=== PATIENT | male | born 1975 | race African-American/Black ===

== ENCOUNTER 2016-10-16 20:09 | Inpatient (IN) ==
--- NOTE | 2016-10-16 21:09 | Emergency Department Note ---
Ramandeep Henderson Brittany, am scribing for, and in the presence of, Florentino Dash M.D. 21:05. Hardy Henderson Howard T, M.D., personally performed the services described in this documentation, ascribed by Shannon Sabillon in my presence, and it is both accurate and complete . Arrival - Arrival Chief Complaint: Extremity Problem Stated Complaint: swelling in leg/bleeding under bottom ED Nursing Triage Note: Pt ambulatory to triage with c/o of left leg swelling and 2nd toe started to form a ulcer. Mode of Arrival: Ambulatory Limitations: No Limitations Source: Patient, Family - History of Present Illness HPI Narrative: This is a 41 y/o black male,who presents to the ED for further evaluation of the left lower extremity which started 6 days ago. He states he has noticed his left foot has been swelling more than normal. He also reports he has noticed an ulcer to the left great toe . He has a known Hx of NIDDM. He states he does not know exactly when the ulcer started but noticed the ulcer to be bleeding earlier tonight. He reports he hit his left ankle on a bedrail 2 days ago. His states they thought the swelling to the left leg was due to the bedrail incident. He denies checking his sugar on a daily basis. He states he is taking Pradaxa. His states she cleans his feet everyday for him and today is the first time she has noticed the discoloration to the left great toe. he denies any chest pain, SOB, or vomiting. Pt has no other complaints/pain in the ED at this time. Pt has a PMHx of CHF, NIDDM, dyslipidemia, HTN, A-fib, and Atrial flutter. Pt has had a cardiac cath with no stents. Pt has a family medical Hx of heart disease and HTN. Pt denies a social Hx. Consistency: constant Severity: moderate Allergies/Adverse Reactions: Allergies Allergy/AdvReac Type Severity Reaction Status Date / Time No Known Allergies Allergy Verified 07/13/16 07:48 Home Medications: Home Medications Medication Instructions Recorded Confirmed Type Carvedilol 25 mg PO BID 10/16/15 10/16/16 History Dabigatran [Pradaxa] 150 mg PO BID 10/16/15 10/16/16 History Furosemide 40 mg PO DAILY 10/16/15 10/16/16 History Lisinopril 10 mg PO DAILY 10/16/15 10/16/16 History Omeprazole 20 mg PO DAILY 10/16/15 10/16/16 History Pravastatin [Pravachol] 40 mg PO BEDTIME 10/16/15 10/16/16 History Spironolactone [Aldactone] 25 mg PO DAILY 10/16/15 10/16/16 History glyBURIDE [Glyburide] 5 mg PO DAILY 10/16/15 10/16/16 History metFORMIN [Glucophage] 1,000 mg PO BID W/MEALS 10/16/15 10/16/16 History Aspirin EC Tab 81 mg PO DAILY #30 tablet 07/14/16 10/16/16 Rx Review of System - Review of System 12 point system: reviewed and no additional remarkable complaints except as stated - Review of System Constitutional: Absent: fever Cardiovascular: Absent: chest pain, dyspnea on exertion Gastrointestinal: Absent: vomiting Musculoskeletal: Present: leg pain (Left leg swelling ), other (Ulcer to the left great toe) Medical,Surgical,& Family Hx - Medical History Cardio: History of: Cardiac Dysrhythmia (atrial fib, atrial flutter), CHF ( nonischemic cardiomyopathy with EF of 10-15% on cath in 2013), Hypertension, Cardiovascular Problems Neurology: No history of: Seizures Endocrine: History of: Diabetes Mellitus (NIDDM), Dyslipidemia - Surgical History Cardiac Surgeries: Sugical HX of: Cardiac Catheterization (2 YEARS AGO, NO STENTS PLACED) - Family History Family History: Reports;: Family Heart Disease, Family Hypertension - Social History Smoking Status: Never smoker Frequency of Alcohol Use: None Type of Drug Use: None Exam Vital Signs: Vital Signs Temperature 99.3 F 10/16/16 20:17 Pulse Rate 71 10/16/16 20:17 Respiratory Rate 20 10/16/16 20:17 Blood Pressure 129/80 10/16/16 20:17 O2 Sat by Pulse Oximetry 95 10/16/16 20:17 - General General appearance: alert, in no apparent distress - Head Head exam: Present: atraumatic, normocephalic, normal inspection - Eye Eye exam: Present: normal appearance, PERRL, EOMI. Absent: scleral icterus, nystagmus, miosis, mydriasis - ENT ENT exam: Present: normal exam, normal oropharynx, mucous membranes moist - Neck Neck exam: Present: normal inspection, full ROM, trachea midline. Absent: tenderness, meningismus, lymphadenopathy, thyromegaly - Chest Chest inspection: Present: normal inspection, symmetric chest wall rise. Absent : tenderness, rash, abscess - Respiratory Respiratory exam: Present: normal lung sounds bilaterally. Absent: rales, respiratory distress, rhonchi, stridor, wheezes - Cardiovascular Cardiovascular exam: Present: regular rate, normal rhythm, normal heart sounds. Absent: murmur, rubs, gallop - Abdominal Exam Abdominal exam: Present: soft, normal bowel sounds. Absent: distention, tenderness, guarding, rebound, rigidity, ascites, mass, bruit - Rectal Exam Rectal exam: Present: deferred - Expanded Lower Left Lower Hip/Pelvis exam: Present: normal inspection, full ROM, pelvis stable. Absent: tenderness, swelling, abrasion, ecchymosis, deformity, internal rotation, shortening Upper leg exam: Present: normal inspection, full ROM. Absent: tenderness, swelling, ecchymosis, deformity, crepitus, dislocation, erythema Knee exam: Present: normal inspection, full ROM. Absent: tenderness, deformity , crepitus, dislocation Lower leg exam: Present: normal inspection (+3 pitting edema), swelling Foot/toe exam: Present: swelling, amputation (Amputation to the 2nd left toe), other (Necrosis to the left great toe). Absent: ecchymosis, deformity, crepitus , erythema, puncture wound, foreign body Neurovascular/Tendon exam: Present: normal capillary refill. Absent: pallor Gait: not tested/not observed - Back Exam Back exam: Present: normal inspection, full ROM. Absent: tenderness, muscle spasm, rashes - Neurological Exam Neurological exam: Present: alert, oriented X3, CN II-XII intact. Absent: motor sensory deficit - Psychiatric Psychiatric exam: Present: normal affect, normal mood. Absent: depressed, agitated, anxious, flat affect, manic - Skin Skin exam: Present: warm, dry, intact, normal color. Absent: rash, cyanosis, diaphoresis, erythema, pallor, mottled Course Course Narrative: Medical decision making: Discussed with hospitalist on-call who will admit the patient and consult general surgery. Dr. White general surgeon is also aware of the patient. Results - Labs Lab Results: I have reviewed the patients labs Disposition Clinical Impression: Idiopathic aseptic necrosis of left toe(s), NICM (nonischemic cardiomyopathy), CHF (congestive heart failure), Diabetes mellitus, HTN (hypertension) Case discussed with: patient, patient's family Disposition: Disch/Xfer-Ipshort Term Hos Condition: Stable Time of Disposition: 21:09 Contact your physician if you experience:: fever over 101, Difficulty voiding, Redness or swelling, Nausea/Vomiting, Shortness of breath, Bleeding, pain uncontrolled by pain medications, Other Return to the Emergency Department if:: fever over 101, Difficulty voiding, Redness or swelling, Nausea/Vomiting, Shortness of breath, Bleeding, pain uncontrolled by pain medications, Other
--- NOTE | 2016-10-16 21:26 | EKG Report ---
Stationary ECG Study [facility] Test Date: 10/16/2016 9:24:53 PM Pat Name: PAT RICH Department: Room: Gender: M Urology Teacher: ESPINOZA : 1975 Requested by: Florentino Kurtz Order Number: [id number] Reading MD: AZEB SEWELL Intervals [place] Rate: 84 P: 79 AK: 133 QRS: 82 QRSD: 99 T: 7 QT: 379 QTc: 419 Interpretive Statements SINUS RHYTHM WITH OCCASIONAL VENTRICULAR PREMATURE COMPLEXES Electronically Signed On 10-17-16 08:27:41 CDT by AZEB SEWELL [email or web address]
[2016-10-16 21:30] LABS: INR 1.2; PT Patient Result 12.3 SECS
[2016-10-16 21:45] LABS: Calcium 8.9 MG/DL (8.5-10.1); Magnesium 1.9 MG/DL (1.8-2.4); Osmolality,Calculated 291.3 MOS/KG (273-304); Potassium 4.6 MMOL/L (3.5-5.1)
--- NOTE | 2016-10-16 22:01 | Hospitalist History & Physical ---
Assessment and Plan (1) Osteomyelitis due to type 2 diabetes mellitus Status: Acute Assessment and plan: Previously had amputation of left great toe, now his left second toe appears to be affected with osteomyelitis grossly on exam Patient is not very symptomatic and vital signs are stable, defer antibiotics at this time unless he develops fever Check ESR and CRP Check ABIs although I palpate good pulses in both feet Consult Dr. White surgery, hope that bone biopsy will guide antibiotic therapy Blood cultures pending Current Visit: Yes (2) Atrial flutter Status: Chronic Assessment and plan: Currently in normal sinus rhythm after an ablation Hold Pradaxa for the expectation of surgery Continue carvedilol Current Visit: No (3) CHF (congestive heart failure) Status: Chronic Assessment and plan: Nonischemic cardiomyopathy with "recovered EF " Continue goal directed medical therapy, hold Spironolactone Current Visit: Yes Qualifiers: Congestive heart failure type: systolic Congestive heart failure chronicity : chronic Qualified Code(s): I50.22 - Chronic systolic (congestive) heart failure (4) Diabetes mellitus Status: Acute Assessment and plan: Hold metformin and glyburide while inpatient, serial fingerstick glucose, sliding scale lispro insulin Current Visit: Yes Qualifiers: Diabetes mellitus type: type 2 Diabetes mellitus complication status: with hyperglycemia Diabetes mellitus assisted insulin use: without middle or intermediate school principal use Qualified Code(s): E11.65 - Type 2 diabetes mellitus with hyperglycemia (5) HTN (hypertension) Status: Chronic Assessment and plan: Well-controlled at the present time, continue home medications, hold Lasix and Aldactone Current Visit: Yes (6) Acute kidney injury Status: Acute Assessment and plan: Hold Lasix and Aldactone, gentle IV hydration given history of heart failure Current Visit: Yes History of Present Illness Chief complaint: Toe wound History of present illness: Mr. Lara is a 41 year old male with past medical history of nonischemic cardiomyopathy/CHF (EF "recovered,") A. Flutter status post ablation on Pradaxa , [id number] diabetes, hypertension, GERD that presented with a chief complaint of toe wound. Onset abrupt. Location left second toe. No associated fever or other generalized symptoms. No associated pain. No aggravating or relieving factors. Precipitating event may have been an abrasion to the left ankle several days ago. He does not seem to check his feet very regularly but was surprised today to find that his left second toe was swollen and oozing a bit of blood. He has neuropathy in bilateral feet but is not terribly uncomfortable at the moment. About a year ago he had his left great toe amputated for similar problem. Culture data at that time showed multiple organisms that were generally susceptible to antibiotics. I discussed CODE STATUS with patient and he opted for DNR. I have reviewed the workup performed in the emergency department of [facility] including labs and I have discussed his case with the emergency room providers. Home Medications Medication Instructions Recorded Confirmed Type Carvedilol 25 mg PO BID 10/16/15 10/16/16 History Dabigatran [Pradaxa] 150 mg PO BID 10/16/15 10/16/16 History Furosemide 40 mg PO DAILY 10/16/15 10/16/16 History Lisinopril 10 mg PO DAILY 10/16/15 10/16/16 History Omeprazole 20 mg PO DAILY 10/16/15 10/16/16 History Pravastatin [Pravachol] 40 mg PO BEDTIME 10/16/15 10/16/16 History Spironolactone [Aldactone] 25 mg PO DAILY 10/16/15 10/16/16 History glyBURIDE [Glyburide] 5 mg PO DAILY 10/16/15 10/16/16 History metFORMIN [Glucophage] 1,000 mg PO BID W/MEALS 10/16/15 10/16/16 History Aspirin EC Tab 81 mg PO DAILY #30 tablet 07/14/16 10/16/16 Rx Allergies Allergy/AdvReac Type Severity Reaction Status Date / Time No Known Allergies Allergy Verified 07/13/16 07:48 Medical,Surgical,& Family Hx - Medical History Cardio: History of: Cardiac Dysrhythmia (atrial fib, atrial flutter), CHF ( nonischemic cardiomyopathy with EF of 10-15% on cath in 2013), Hypertension, Cardiovascular Problems Neurology: No history of: Seizures Endocrine: History of: Diabetes Mellitus (NIDDM), Dyslipidemia - Surgical History Cardiac Surgeries: Sugical HX of: Cardiac Catheterization (2 YEARS AGO, NO STENTS PLACED) - Family History Family History: Reports;: Family Heart Disease, Family Hypertension - Social History Smoking Status: Never smoker Frequency of Alcohol Use: None Type of Drug Use: None Marital Status: Lives With:: Spouse Functional capacity: independent ambulation Review of systems: - Constitutional Constitutional: Absent: chills, fatigue, fever(s), night sweats, weight loss - EENT Eyes: Absent: blurry vision Ears: Absent: decreased hearing, ear pain Nose, mouth and throat: Absent: nasal congestion, sore throat - Cardiovascular Cardiovascular: Absent: chest pain at rest, chest pain with activity, dyspnea on exertion, edema, orthopnea, palpitations - Respiratory Respiratory: Absent: cough, dyspnea, hemoptysis - Gastrointestinal Gastrointestinal: Absent: abdominal pain, constipation, diarrhea, dysphagia, hematemesis, hematochezia, melena, nausea, vomiting - Genitourinary Genitourinary: Absent: difficulty urinating, dysuria, hematuria - Musculoskeletal Musculoskeletal: Present: Wound on left foot - Neurological Neurological: Present: Diabetic neuropathy in feet absent: confusion, dizziness , focal weakness, headache(s), syncope - Psychiatric Psychiatric: Absent: anxiety, depression - Endocrine Endocrine: Absent: cold intolerance, heat intolerance, polydipsia, polyuria - Hematologic/Lymphatic Hematologic/Lymphatic: Absent: easy bleeding, easy bruising, lymphadenopathy Exam - Constitutional Vitals: Period Temp Pulse Resp BP Sys/Jin Pulse Ox Last 24 Hr 99.3 F-99.3 F 71-81 18-20 129-150/80-86 95-96 General appearance: over weight, other (-Mauritian male lying on stretcher pleasant cooperative) Exam: - Eye Eye exam: Present: EOMI. Absent: conjunctival injection, scleral icterus Pupils: Present: CASTRO - ENT ENT exam: Present: normal external ear exam, normal oropharynx - Expanded ENT Exam Mouth exam: Present: moist - Neck Neck exam: Present: normal inspection. Absent: lymphadenopathy, thyromegaly - Respiratory Respiratory exam: Present: clear to auscultation bilaterally. Absent: accessory muscle use, rales, rhonchi, wheezes - Cardiovascular Cardiovascular exam: Present: regular rate and rhythm. Absent: diastolic murmur , systolic murmur - Expanded Cardiovascular Exam Peripheral pulses: 2+: posterior tibialis (L), posterior tibialis (R) - GI/Abdominal GI/Abdominal exam: Present: normal bowel sounds, soft. Absent: distended, hyperactive bowel sounds, hypoactive bowel sounds, organomegaly, tenderness, rebound - Extremities Exam Extremities exam: Present: edema, swollen dark and draining left second toe. Abrasion of left ankle with swelling of the lower leg. - Neurological Exam Neurological exam: Present: alert, oriented X3, CN II-XII intact. Absent: motor sensory deficit - Psychiatric Psychiatric exam: Present: normal affect - Skin Skin exam: Present: warm, dry. Absent: diaphoretic, rash Results - Labs CBC & BMP: 10/16/16 20:58 10/16/16 20:58 - Diagnostic Findings Procedure: KUB x-ray: report reviewed by me
[2016-10-16] MEDS ORDERED: GLUCAGON 1 MG VIAL IM PRN (22:22)
[2016-10-16] MEDS ORDERED: DEXTROSE 50% 25 GM/50 ML VIAL IV PRN (22:22)
[2016-10-16 22:39] LABS: Basophils % 0.3 % (0.0-0.8); Eosinophils # 0.2 10*3/uL (0.0-0.87); Eosinophils % 2.2 % (0.00-10.9); Hematocrit 34.5 VOL% (42.0-52.0); Hemoglobin 11.4 GM/DL (14.0-18.0); Immature Granulocytes % 0.4 %; Immature Granulocytes Absolute 0.03 #; Lymphocytes # 1.7 10*3/uL (1.4-4.0); Lymphocytes % 22.1 % (21.2-54.2); Mean Corpuscular Hemoglobin 29 PG (27-34); Mean Corpuscular Volume 86.9 FL (87-102); Monocytes # 0.8 10*3/uL (0.11-0.8); Monocytes % 9.9 % (1.7-12.7); Neutrophils % 65.1 % (38.7-73.9); Platelet Count 149 T/CUMM (130-400); Red Blood Count 3.97 MC/CUMM (3.8-5.5); White Blood Count 7.6 T/CUMM (4-12)
[2016-10-16] MEDS: CARVEDILOL 25 MG TABLET PO SCH (22:55)
[2016-10-16] MEDS: SODIUM CHLORIDE 0.45% 1,000 ML IV SCH (22:55)
[2016-10-17] MEDS: INSULIN LISPRO 100 UNIT/ML SUBCUT SCH ×4 (00:20→18:09)
--- NOTE | 2016-10-17 08:21 | XRay Report ---
Referring Physician: Florentino Dash Exam: XR left toes 3 views Date: October 14, 2016 at 9:02 PM Reason: Infection/necrosis left second toe Comparison: Left foot x-rays January 25, 2016 Findings: There has been amputation of the first digit to the proximal first metatarsal. Soft tissue swelling is seen at the second digit, and there is irregularity and lucency at the distal tuft of the distal second phalanx. This is concerning for osteomyelitis. The remaining osseous structures appear intact, but there may be hammertoe deformities. Mild degenerative change is noted at the tarsal bones. Impression: 1. There is soft tissue swelling at the second digit. There is also lucency and irregularity at the distal tuft of the distal second phalanx. This is concerning for osteomyelitis. 2. There has been interval amputation of the first digit to the proximal first metatarsal. PROCEDURE INTERPRETED AT [facility] DEPARTMENT OF RADIOLOGY Final Report Signed by: Dr. Lucia Agarwal
[2016-10-17] MEDS: PANTOPRAZOLE 40 MG TABLET PO SCH (09:33)
[2016-10-17] MEDS: LISINOPRIL 5 MG TABLET PO SCH (09:33)
[2016-10-17] MEDS: CARVEDILOL 25 MG TABLET PO SCH ×2 (09:33→21:22)
--- NOTE | 2016-10-17 10:02 | General Surgery Consult Note ---
Assessment and Plan - Time spent with patient Time spent with patient: Greater than 30 minutes (1) Osteomyelitis due to type 2 diabetes mellitus Status: Acute Assessment and plan: 10/17/16 Probable osteomyelitis of the distal left 2nd toe with x ray evidence of bony distruction. There is some drainage present and clinical signs of chronic infection present and elevated CRP and ESR. His He has good palpable pulses and evidence of healing in the foot with previously amputated left great toe. We discussed the need for excisional debridement/amputation of at least the distal tuft of the left 2nd toe. He is in agreement with surgery. His Pradaxa & Metformin have been held. Will post for surgery; Anesthesia will likely require a cardiac clearance, so we'll go ahead and request a consult. Current Visit: Yes (2) Atrial flutter Status: Chronic Assessment and plan: 10/17/16 Pt with history of atrial flutter, s/p ablation. His Pradaxa has been held and we will ask Cardiology to clear prior to surgery. We anticipate he will require minimal anesthesia for this procedure. Current Visit: No History of Present Illness Chief complaint: LLE swelling with drainage from left 2nd toe History of present illness: Mr. Lara is a 41 year old male Home Medications Medication Instructions Recorded Confirmed Type Carvedilol 25 mg PO BID 10/16/15 10/16/16 History Dabigatran [Pradaxa] 150 mg PO BID 10/16/15 10/16/16 History Furosemide 40 mg PO DAILY 10/16/15 10/16/16 History Lisinopril 10 mg PO DAILY 10/16/15 10/16/16 History Omeprazole 20 mg PO DAILY 10/16/15 10/16/16 History Pravastatin [Pravachol] 40 mg PO BEDTIME 10/16/15 10/16/16 History Spironolactone [Aldactone] 25 mg PO DAILY 10/16/15 10/16/16 History glyBURIDE [Glyburide] 5 mg PO DAILY 10/16/15 10/16/16 History metFORMIN [Glucophage] 1,000 mg PO BID W/MEALS 10/16/15 10/16/16 History Aspirin EC Tab 81 mg PO DAILY #30 tablet 07/14/16 10/16/16 Rx Allergies Allergy/AdvReac Type Severity Reaction Status Date / Time No Known Allergies Allergy Verified 07/13/16 07:48 Medical,Surgical,& Family Hx - Medical History Cardio: History of: Cardiac Dysrhythmia (atrial fib, atrial flutter), CHF ( nonischemic cardiomyopathy with EF of 10-15% on cath in 2013), Hypertension, Cardiovascular Problems Neurology: No history of: Seizures Endocrine: History of: Diabetes Mellitus (NIDDM), Dyslipidemia Musculoskeletal: History of: Amputation (left great toe) - Surgical History Cardiac Surgeries: Sugical HX of: Cardiac Catheterization (2 YEARS AGO, NO STENTS PLACED) Thoracic Surgeries: Patient denies;: Organ Transplant Neurologic Surgeries: Patient denies: Neurologic Surgery HEENT Surgeries: Patient denies: Thyroid Surgery, Tonsilectomy & Adenoidectomy - Family History Family History: Reports;: Family Heart Disease, Family Hypertension - Social History Smoking Status: Never smoker Frequency of Alcohol Use: None Type of Drug Use: None Exam - Constitutional Vitals: Period Temp Pulse Resp BP Sys/Jin Pulse Ox Last 24 Hr 97.4 F-98.9 F 71-86 18-20 133-150/67-86 95-99 General appearance: no acute distress, over weight, other (Pleasant, cooperative , AAOx3) - Head Head exam: Present: normocephalic - Eye Eye exam: Present: EOMI Pupils: Present: CASTRO - ENT ENT exam: Present: normal external ear exam, normal oropharynx Mouth exam: Present: normal voice, dry mucosa - Neck Neck exam: Present: trachea midline. Absent: lymphadenopathy - Respiratory Respiratory exam: Present: clear to auscultation bilaterally - Cardiovascular Cardiovascular exam: Present: RRR - GI/Abdominal GI/Abdominal exam: Present: hypoactive bowel sounds, soft. Absent: tenderness - Extremities Exam Extremities exam: Present: edema (LLE with 2+ pitting edema. Abrasion 2cm proximal to the medial malleolus. Absent left great toe 2nd to amputation; incision well healed. Lt 2nd toe is edematous with skin changes and ulceration at the tip; there is scant purulent drainage present. No crepitus, no hyperemia. Subtle ischemic darkening and skin changes from the base of the toe distally. Other toes are warm to touch, pink with good 1-2 second capillary refill. No other abrasions or ulcerations. Nails with mild fungal changes on the left. Right foot with dry skin but no gross callouses. There are fungal nail changes present but no ingrowing nails. No redness, no ischemic changes. RLE without edema, TEDs in place. Pulses palpable at the DP and PT sites bilaterally. No ) Quality Measures - VTE Contraindication to Pharmacological VTE Prophylaxis: Already on Theraputic Agent , No Prophylaxis Needed Contraindication to Mechanical VTE Prophylaxis: Local Inflammation - Stroke Symptom Onset Unknown: No Results - Labs CBC & BMP: 10/16/16 20:58 10/16/16 20:58 Lab Results: I have reviewed the past 24 hour labs (Labs noted; Findings of significance are elevated results of: Creatinine 1.8(eGFR is noted to be 73); CRP 2.13, ESR 68) - Diagnostic Findings Procedure: X-ray: report reviewed by me, image reviewed by me (Lt 2nd toe with soft tissue swelling and bony erosion of th distal tuft, suggestive of osteomyelitis.)
--- NOTE | 2016-10-17 10:09 | Hospitalist Progress Note ---
Hospitalist: Subjective Interval history: Follow-up probable osteomyelitis left second toe, type II DM, and atrial flutter. The patient says that he feels fine. The toe was not draining much at this time. We have held his anticoagulants in anticipation of possible surgery. He underwent ablation of the atrial arrhythmia couple of months ago. Impression: 1. Type II DM with probable osteomyelitis of the left second toe 2. Atrial flutter, status post ablation 3. Chronic kidney disease Plan: Await surgical evaluation. Continue home medications except as described above Exam - Constitutional Vitals: Period Temp Pulse Resp BP Sys/Jin Pulse Ox Last 24 Hr 97.4 F-98.9 F 71-86 18-20 133-150/67-86 95-99 Vital signs are noted above. Heart is regular with no murmur or gallop. Lungs are clear with no rales or wheezes. Abdomen is soft without mass or tenderness. Examination of the left foot reveals some erythema and induration of the second toe. The skin at the tip is denuded. Foot pulses are easily palpable. He is awake and alert Results - Labs CBC & BMP: 10/16/16 20:58 10/16/16 20:58 Quality Measures - VTE Contraindication to Pharmacological VTE Prophylaxis: Already on Theraputic Agent , No Prophylaxis Needed Contraindication to Mechanical VTE Prophylaxis: Local Inflammation - Stroke Symptom Onset Unknown: No
[2016-10-17] MEDS ORDERED: CHLORHEXIDINE 4% SOLN 118 ML BOTTLE TOP ONE (10:19)
[2016-10-17] MEDS ORDERED: SKIN HEALING OINT (AQUAPHOR) 50 GM TUBE TOP PRN (10:19)
[2016-10-17] MEDS: LEVOFLOXACIN INJ 500 MG in PREMIX 1 EACH IV SCH (12:09)
[2016-10-17] MEDS: BACITRACIN OINT 0.9 GM PACK TOP SCH (17:40)
[2016-10-17] MEDS: PRAVASTATIN 40 MG TABLET PO SCH (21:22)
[2016-10-17] MEDS: SODIUM CHLORIDE 0.45% 1,000 ML IV SCH (21:22)
[2016-10-18] MEDS: INSULIN LISPRO 100 UNIT/ML SUBCUT SCH ×4 (03:17→18:21)
[2016-10-18] MEDS: glyBURIDE 5 MG TABLET PO SCH (08:28)
[2016-10-18] MEDS: CARVEDILOL 25 MG TABLET PO SCH ×2 (08:28→21:09)
[2016-10-18] MEDS: SPIRONOLACTONE 25 MG TABLET PO SCH (08:28)
[2016-10-18] MEDS: LISINOPRIL 5 MG TABLET PO SCH (08:28)
[2016-10-18] MEDS: PANTOPRAZOLE 40 MG TABLET PO SCH (08:29)
[2016-10-18] MEDS: FUROSEMIDE 40 MG TABLET PO SCH (08:29)
--- NOTE | 2016-10-18 08:40 | Cardiology Consult Note ---
Assessment and Plan - Time spent with patient Time spent with patient: Greater than 30 minutes (Examination chart review film review interview and documentation) (1) Dyslipidemia Status: Chronic Current Visit: Yes (2) Paroxysmal atrial fibrillation Status: Chronic Assessment and plan: He remains in normal sinus rhythm Current Visit: Yes (3) Diabetes mellitus Status: Chronic Current Visit: Yes Qualifiers: Diabetes mellitus type: type 2 Diabetes mellitus complication status: with skin complications Diabetes mellitus complication detail: with foot ulcer Diabetes mellitus halfway insulin use: without long term care administrator use Qualified Code( s): E11.621 - Type 2 diabetes mellitus with foot ulcer; L97.509 - Non-pressure chronic ulcer of other part of unspecified foot with unspecified severity (4) HTN (hypertension) Status: Chronic Current Visit: Yes Qualifiers: Hypertension type: essential hypertension Qualified Code(s): I10 - Essential (primary) hypertension History of Present Illness - Data of Consult Patient: known to practice within the last 3 years Consult date: 10/18/16 Requesting Physician: Paula Rivera - Consult Narrative Reason for consult: "Operative risk assessment" History of present illness: Mr. Lara is a 41 year old male with history of tachycardia induced cardiomyopathy, obstructive sleep apnea, diabetes, hyperlipidemia, hypertension , typical flutter status post ablation, hypertensive heart disease, paroxysmal atrial fibrillation and erectile dysfunction who is admitted to the hospitalist service with an infected left great toe. He is scheduled to have partial amputation on 10/19/[address] White. I have been asked to see. I have known the patient for some years and have followed. He has a history of tachycardia induced cardiomyopathy with ejection fraction as low as 15-20% however with rate control and atrial flutter ablation the patient has normalization of his ejection fraction. His last transthoracic echo cardiogram performed on 2015 showed ejection fraction of 55% with left ventricular hypertrophy mild mitral regurgitation and a right ventricular systolic pressure estimated to be 28 mmHg plus the right atrial pressure. The patient has no signs or symptoms of decompensated heart failure. He had normal coronary arteries and 10/13/2012 at that time his ejection fraction was only 10%. The patient has been well compensated and is not been admitted for heart failure exacerbation since his rate was controlled. He has had recurrent infections of his toes related to his diabetes. I saw and examined the patient in room 238. He denies any chest pain shortness of breath lower extremity edema orthopnea or any dyspnea or any limitations to his daily living from a cardiopulmonary standpoint. I feel the patient may proceed with proposed amputation as needed of his lower extremity without further cardiovascular workup and/or evaluation. If there are any problems or issues related to his cardiac status in the perioperative. Please do not hesitate to notify the [facility] diesel pile hammer operator application support. I have nothing to add at this point recommend he continue his home medication regimen. Resume anticoagulation as soon as feasible post surgically. I have nothing to add an and will sign off at this point. Please call if needed CC: Keegan Mcclain MD - Home Medications and Allergies Home Medications: Home Medications Medication Instructions Recorded Confirmed Type Carvedilol 25 mg PO BID 10/16/15 10/16/16 History Dabigatran [Pradaxa] 150 mg PO BID 10/16/15 10/16/16 History Furosemide 40 mg PO DAILY 10/16/15 10/16/16 History Lisinopril 10 mg PO DAILY 10/16/15 10/16/16 History Omeprazole 20 mg PO DAILY 10/16/15 10/16/16 History Pravastatin [Pravachol] 40 mg PO BEDTIME 10/16/15 10/16/16 History Spironolactone [Aldactone] 25 mg PO DAILY 10/16/15 10/16/16 History glyBURIDE [Glyburide] 5 mg PO DAILY 10/16/15 10/16/16 History metFORMIN [Glucophage] 1,000 mg PO BID W/MEALS 10/16/15 10/16/16 History Aspirin EC Tab 81 mg PO DAILY #30 tablet 07/14/16 10/16/16 Rx Allergies/Adverse Reactions: Allergies Allergy/AdvReac Type Severity Reaction Status Date / Time No Known Allergies Allergy Verified 07/13/16 07:48 - Constitutional Constitutional: Present: weight gain. Absent: anorexia, chills, increased appetite - EENT Eyes: Present: blurry vision. Absent: diplopia Ears: Absent: decreased hearing, ear discharge, ear pain Nose, mouth and throat: Absent: epistaxis, headache(s), lip swelling - Cardiovascular Cardiovascular: Present: as per HPI. Absent: chest pain at rest, chest pain with activity, claudication, diaphoresis, dyspnea, dyspnea on exertion, edema, radiating jaw, neck or arm pain, lightheadedness, orthopnea, palpitations, PND - Respiratory Respiratory: Present: snoring. Absent: dyspnea, dyspnea on exertion, wheezing - Gastrointestinal Gastrointestinal: Absent: abdominal pain, dyspepsia, odynophagia - Genitourinary Genitourinary: Absent: difficulty urinating, hematuria, nocturia - Neurological Neurological: Absent: confusion, convulsions, disequilibrium, dizziness, focal weakness, frequent falls - Psychiatric Psychiatric: Absent: anxiety, depression - Endocrine Endocrine: Absent: cold intolerance, heat intolerance - Hematologic/Lymphatic Hematologic/Lymphatic: Present: easy bruising. Absent: easy bleeding Medical,Surgical,& Family Hx - Medical History Cardio: History of: Cardiac Dysrhythmia (atrial fib, atrial flutter -status post flutter ablation with PAF), CHF (nonischemic cardiomyopathy with normalized EF as of 03/2016), Hypertension, Cardiovascular Problems Neurology: No history of: Seizures Endocrine: History of: Diabetes Mellitus (NIDDM), Dyslipidemia Musculoskeletal: History of: Amputation (left great toe) - Surgical History Cardiac Surgeries: Sugical HX of: Cardiac Catheterization (Normal coronary arteries 2012) Thoracic Surgeries: Patient denies;: Organ Transplant Neurologic Surgeries: Patient denies: Neurologic Surgery HEENT Surgeries: Patient denies: Thyroid Surgery, Tonsilectomy & Adenoidectomy - Family History Family History: Reports;: Family Heart Disease, Family Hypertension - Social History Smoking Status: Never smoker Frequency of Alcohol Use: None Type of Drug Use: None Marital Status: Lives With:: Spouse Functional capacity: independent ambulation Physical Examination Vital Signs Temp Pulse Resp BP Pulse Ox 99.3 F 71 20 129/80 95 10/16/16 20:17 10/16/16 20:17 10/16/16 20:17 10/16/16 20:17 10/16/16 20:17 General: Present: Appears Well Neck: Present: Supple Neck, Midline Trachea Cardiac: Present: Reg Rate and Rhythm, Regular Rate, S1/S2. Absent: S4 Lungs: Present: Normal Exam Neuro: Present: Cranial Nerve 2-12 Intact Abdomen: Present: Soft, Active Bowel Sounds Skin: Present: Clear, Rash Extremities: Absent: Edema Result/EKG - Labs CBC & BMP: 10/16/16 20:58 10/16/16 20:58 Labs: Laboratory Results - last 24 hr 10/17/16 10/17/16 10/17/16 12:08 17:37 22:10 POC Glucose 118 H 146 H 132 H 10/18/16 10/18/16 00:18 06:19 POC Glucose 122 H 206 H - EKG EKG results: interpreted by me (nsr with VPC X 1) Quality Measures - VTE Contraindication to Pharmacological VTE Prophylaxis: Already on Theraputic Agent , No Prophylaxis Needed - Stroke Symptom Onset Unknown: No
[2016-10-18 10:24] LABS: Basophils % 0.4 % (0.0-0.8); Eosinophils # 0.1 10*3/uL (0.0-0.87); Eosinophils % 2.5 % (0.00-10.9); Hematocrit 34.1 VOL% (42.0-52.0); Hemoglobin 11.6 GM/DL (14.0-18.0); Immature Granulocytes % 0.2 %; Immature Granulocytes Absolute 0.01 #; Lymphocytes % 20.2 % (21.2-54.2); Mean Corpuscular Hemoglobin 28 PG (27-34); Mean Corpuscular Volume 83.4 FL (87-102); Monocytes # 0.6 10*3/uL (0.11-0.8); Monocytes % 11.6 % (1.7-12.7); Neutrophils # 3.2 10*3/uL (1.4-7.4); Neutrophils % 65.1 % (38.7-73.9); Platelet Count 130 T/CUMM (130-400); Red Blood Count 4.09 MC/CUMM (3.8-5.5); Red Cell Distribution Width 12.7 % (9.3-17.3); White Blood Count 4.8 T/CUMM (4-12)
[2016-10-18 10:56] LABS: Albumin 3.4 G/DL (3.4-5.0); Bilirubin,Total 0.5 MG/DL (0.2-1.0); Calcium 8.9 MG/DL (8.5-10.1); Osmolality,Calculated 279.7 MOS/KG (273-304); Potassium 4.5 MMOL/L (3.5-5.1); Total Protein 7.2 G/DL (6.4-8.3)
[2016-10-18] MEDS: LEVOFLOXACIN INJ 500 MG in PREMIX 1 EACH IV SCH (11:10)
--- NOTE | 2016-10-18 11:35 | Hospitalist Progress Note ---
Assessment and Plan (1) Osteomyelitis due to type 2 diabetes mellitus Status: Acute Assessment and plan: Impression: 1. Osteomyelitis left second toe 2. Type II DM 3. Atrial arrhythmia Plan: The patient has been cleared for surgery by cardiology. We have held his anticoagulant in anticipation of surgery. He is ready to proceed in the morning. This note was completed using [employer] voice recognition software. There may be char filter operator helper errors as a result. Current Visit: Yes Hospitalist: Subjective Interval history: Follow-up possible osteomyelitis, atrial arrhythmia, and type II DM. The patient has been seen by surgery and is ready for partial toe amputation tomorrow. Cardiology has also seen the patient and cleared him for surgery, primarily due to his atrial arrhythmia. The patient is ready to proceed in the morning. Exam - Constitutional Vitals: Period Temp Pulse Resp BP Sys/Jin Pulse Ox Last 24 Hr 98.0 F-98.9 F 69-87 18-22 117-148/60-84 94-99 Vital signs are noted above. Heart is regular with no murmur or gallop. Lungs are clear with no rales or wheezes. Abdomen is soft without any mass or tenderness. He is awake and alert. Results - Labs CBC & BMP: 10/18/16 10:17 10/18/16 10:17 Lab Results: I have reviewed the past 24 hour labs Quality Measures - VTE Contraindication to Pharmacological VTE Prophylaxis: Already on Theraputic Agent , No Prophylaxis Needed - Stroke Symptom Onset Unknown: No
--- NOTE | 2016-10-18 13:17 | General Surgery Progress Note ---
Assessment and Plan - Time spent with patient Time spent with patient: Less than 30 minutes (1) Osteomyelitis due to type 2 diabetes mellitus Status: Acute Assessment and plan: 10/18/2016. Patient's afebrile vital signs look good and stable at this point. Sugars are under good control. Cardiology is seeing him and cleared him at this point. Our plans are taken to surgery to debride her amputate part of that toe. He understands and acceptable at this area. Current Visit: Yes Subjective Patient reports: Present: feels better, tolerating a regular diet, afebrile. Absent: nausea Exam - Constitutional Vitals: Period Temp Pulse Resp BP Sys/Jin Pulse Ox Last 24 Hr 98.0 F-98.9 F 71-87 18-22 117-155/60-94 94-99 General appearance: no acute distress - Head Head exam: Present: normal inspection - ENT ENT exam: Present: normal exam - Neck Neck exam: Present: normal inspection - Respiratory Respiratory exam: Present: clear to auscultation bilaterally, rales - Cardiovascular Cardiovascular exam: Present: RRR - GI/Abdominal GI/Abdominal exam: Present: hypoactive bowel sounds, soft (Toe remains clean and dry at this time with just the ulceration and swelling at the very tip.) - Extremities Exam Extremities exam: Present: other - Back Exam Back exam: Present: normal inspection - Neurological Exam Neurological exam: Present: alert, oriented X3, CN II-XII intact - Skin Skin exam: Present: normal color, warm, dry Results - Labs CBC & BMP: 10/18/16 10:17 10/18/16 10:17 Lab Results: I have reviewed the past 24 hour labs Quality Measures - VTE Contraindication to Pharmacological VTE Prophylaxis: Already on Theraputic Agent , No Prophylaxis Needed - Stroke Symptom Onset Unknown: No
[2016-10-18] MEDS: PRAVASTATIN 40 MG TABLET PO SCH (21:09)
[2016-10-19] MEDS: SODIUM CHLORIDE 0.45% 1,000 ML IV SCH (06:34)
[2016-10-19] MEDS: INSULIN LISPRO 100 UNIT/ML SUBCUT SCH ×2 (06:34)
--- NOTE | 2016-10-19 06:35 | EKG Report ---
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
[2016-10-19] MEDS: CARVEDILOL 25 MG TABLET PO SCH ×3 (07:23→20:53)
[2016-10-19] MEDS ORDERED: BUPIVACAINE 0.25% 50 ML VIAL ONE (08:24)
[2016-10-19] MEDS ORDERED: BACITRACIN OINT 0.9 GM PACK TOP ONE (09:15)
[2016-10-19] MEDS ORDERED: ONDANSETRON 4 MG/2 ML VIAL IV PRN (09:36)
[2016-10-19] MEDS ORDERED: ACETAMINOPHEN 325 MG TABLET PO PRN (09:36)
[2016-10-19] MEDS ORDERED: HYDROmorphone 2 MG/1 ML VIAL IV PRN (09:36)
--- NOTE | 2016-10-19 09:36 | Operative Note ---
Date of procedure: 10/19/16 Pre-op diagnosis: Diabetic ulcer distal part of the left second toe Post-op diagnosis: same Procedure: Operative note: Preoperative diagnosis: Diabetic ulceration tip of the left second toe. Postop diagnosis same Procedure: Excisional debridement of the diabetic ulcer tip of the left second toe with amputation of the distal bone of the distal phalanges Surgeon Dr. White Anesthesia was managed as a care with digital block. Brief history: 41-year-old -Citizen Of [place] male diabetic who had lost his first great toe on the left side due to some infection. He comes in after wearing rather tight shoe and has a distal tip ulceration of the left second toe. X-rays are not suggestive of any osteolytic this point. At this point is unclear as to what we need to do with this certainly need to debride this wound consider the possibility of an amputation of the toe. He seems to have fairly good circulation into the foot. Procedure: Patient is supine position prepped and draped in a sterile fashion timeout and antibiotics completed approaches area of the left second toe. There is a distal ulcer present at this time is 2 cm x 0.8 cm in size. There is a good bit of loose skin around this edges. And after completing the digital block I went ahead and begin to debride that loose skin around the edges of it. As I did the skin edges look better than I anticipated at this time even though there was a little swelling of the tuft of the toe. At that point I made a point to go ahead and just excise the ulcer itself from the bed of the distal tuft. I excised that along with removing the toenail at this time. We did that we had pretty good bleeding from the edges at this time and he we did have exposure of the distal tuft of the bone of the distal phalanges. At that point I carefully debrided back along the bone edge and then I took a bone cutter we cut the distal tuft off completely and sent that for culture. Once we had debrided this the wound bed looks pretty clean at this time I did not see any gross infection or purulent material we debrided all the necrotic skin and fatty tissue of the wound bed with the scissors and the knife and I had a good clean bed. At this point I felt like maybe we could save the rest of the toe not have to do a major amputation. I irrigated washed with saline solution and then I went ahead and approximated the skin edges with vertical mattresses of 4- 0 nylon. Bulky dressing was applied and the patient taken recovery room. Estimated blood loss 5 cc Sponge count correct 2 Drains none Complications none Condition stable satisfactory Anesthesia: MAC, local (0.25% Marcaine plain mixed have not once since Xylocaine plain in digital block) Surgeon / Physician: Ethan White Estimated blood loss: other (5 cc) Specimens: other (Tissue for pathology and culture) Condition: stable Disposition: floor Results - Labs CBC & BMP: 10/18/16 10:17 10/18/16 10:17 Discharge Plan - Discharge Medications No Action metFORMIN [Glucophage] 1,000 mg PO BID W/MEALS Carvedilol 25 mg PO BID Dabigatran [Pradaxa] 150 mg PO BID Pravastatin [Pravachol] 40 mg PO BEDTIME Omeprazole 20 mg PO DAILY Lisinopril 10 mg PO DAILY Spironolactone [Aldactone] 25 mg PO DAILY glyBURIDE [Glyburide] 5 mg PO DAILY Furosemide 40 mg PO DAILY Aspirin EC Tab 81 mg PO DAILY #30 tablet - Follow Up or Referral - Forms/Instructions
[2016-10-19] MEDS ORDERED: MIDAZOLAM 2 MG/2 ML VIAL ONE (09:41)
[2016-10-19] MEDS ORDERED: fentaNYL 100 MCG/2 ML VIAL ONE (09:41)
[2016-10-19] MEDS ORDERED: PROPOFOL 200 MG/20 ML VIAL IV ONE (09:41)
[2016-10-19] MEDS: BACITRACIN OINT 0.9 GM PACK TOP SCH (10:27)
[2016-10-19] MEDS: LEVOFLOXACIN INJ 500 MG in PREMIX 1 EACH IV SCH (10:38)
[2016-10-19] MEDS: PANTOPRAZOLE 40 MG TABLET PO SCH (10:40)
[2016-10-19] MEDS: SPIRONOLACTONE 25 MG TABLET PO SCH (10:40)
[2016-10-19] MEDS: glyBURIDE 5 MG TABLET PO SCH (10:40)
[2016-10-19] MEDS: FUROSEMIDE 40 MG TABLET PO SCH (10:41)
[2016-10-19] MEDS: LISINOPRIL 5 MG TABLET PO SCH (10:41)
--- NOTE | 2016-10-19 10:57 | Anesthesia Post-Op ---
Anesthesia Post OP - Post Ansesthetic Evaluation Patient seen in post op: Yes Resp: within normal limits CV: within normal limits Mental: within normal limits Temp: within normal limits Diis-Aw-Skhpgzlvq: within normal limits Nausea and Vomiting: within normal limits Pain: within normal limits
[2016-10-19] MEDS: INSULIN REGULAR 100 UNIT/ML SUBCUT SCH ×3 (13:10→20:50)
[2016-10-19] MEDS: PENTOXIFYLLINE 400 MG TABLET PO SCH ×2 (15:27→20:53)
[2016-10-19] MEDS: ceFAZolin 2,000 MG in PREMIX 1 EACH IV SCH (15:28)
--- NOTE | 2016-10-19 17:02 | Hospitalist Progress Note ---
Assessment and Plan - Time spent with patient Time spent with patient: Greater than 30 minutes (1) Osteomyelitis due to type 2 diabetes mellitus Status: Acute Assessment and plan: Status post amputation of toe. Continue current management. Current Visit: Yes (2) Diabetes mellitus Status: Chronic Assessment and plan: Well-controlled, continue current management. Current Visit: Yes Qualifiers: Diabetes mellitus type: type 2 Diabetes mellitus complication status: with skin complications Diabetes mellitus complication detail: with foot ulcer Diabetes mellitus care home insulin use: without care home use Qualified Code( s): E11.621 - Type 2 diabetes mellitus with foot ulcer; L97.509 - Non-pressure chronic ulcer of other part of unspecified foot with unspecified severity (3) Paroxysmal atrial fibrillation Status: Chronic Assessment and plan: Sinus continue current management. Current Visit: Yes (4) CHF (congestive heart failure) Status: Chronic Assessment and plan: Stable. Current Visit: Yes Qualifiers: Congestive heart failure type: systolic Congestive heart failure chronicity : chronic Qualified Code(s): I50.22 - Chronic systolic (congestive) heart failure Hospitalist: Subjective Interval history: No complaints currently. Returned from surgical debridement. Exam - Constitutional Vitals: Period Temp Pulse Resp BP Sys/Jin Pulse Ox Last 24 Hr 97.0 F-98.2 F 61-82 12-20 117-151/61-100 93-100 General appearance: no acute distress - Head Head exam: Present: normocephalic, atraumatic - Eye Eye exam: Present: EOMI Pupils: Present: CASTRO - ENT ENT exam: Present: normal exam - Neck Neck exam: Present: normal inspection - Respiratory Respiratory exam: Present: clear to auscultation bilaterally. Absent: rhonchi, wheezes - Cardiovascular Cardiovascular exam: Present: regular rate and rhythm. Absent: gallop, rubs, systolic murmur - GI/Abdominal GI/Abdominal exam: Present: normal bowel sounds, soft. Absent: distended, firm , guarding, tenderness, rebound - Extremities Exam Extremities exam: Present: normal inspection. Absent: calf tenderness, edema Results - Labs CBC & BMP: 10/18/16 10:17 10/18/16 10:17 Lab Results: I have reviewed the past 24 hour labs Quality Measures - VTE Contraindication to Pharmacological VTE Prophylaxis: Already on Theraputic Agent , No Prophylaxis Needed - Stroke Symptom Onset Unknown: No
[2016-10-19] MEDS: PRAVASTATIN 40 MG TABLET PO SCH (20:53)
[2016-10-20] MEDS: ceFAZolin 2,000 MG in PREMIX 1 EACH IV SCH (01:49)
[2016-10-20 06:22] LABS: Basophils % 0.5 % (0.0-0.8); Eosinophils # 0.2 10*3/uL (0.0-0.87); Eosinophils % 2.4 % (0.00-10.9); Hematocrit 35.6 VOL% (42.0-52.0); Immature Granulocytes % 0.3 %; Immature Granulocytes Absolute 0.02 #; Lymphocytes # 1.6 10*3/uL (1.4-4.0); Lymphocytes % 26.7 % (21.2-54.2); Mean Corpuscular HGB Conc 33.7 GM/DL (32-36); Mean Corpuscular Hemoglobin 28 PG (27-34); Mean Corpuscular Volume 84.4 FL (87-102); Monocytes # 0.8 10*3/uL (0.11-0.8); Monocytes % 12.4 % (1.7-12.7); Neutrophils # 3.6 10*3/uL (1.4-7.4); Neutrophils % 57.7 % (38.7-73.9); Platelet Count 155 T/CUMM (130-400); Red Blood Count 4.22 MC/CUMM (3.8-5.5); Red Cell Distribution Width 12.8 % (9.3-17.3); White Blood Count 6.2 T/CUMM (4-12)
[2016-10-20 06:57] LABS: Calcium 8.9 MG/DL (8.5-10.1); Osmolality,Calculated 285.3 MOS/KG (273-304); Potassium 4.6 MMOL/L (3.5-5.1)
[2016-10-20] MEDS ORDERED: BACITRACIN OINT 0.9 GM PACK TOP SCH (09:00)
[2016-10-20] MEDS ORDERED: ENOXAPARIN 40 MG/0.4 ML SYRINGE SUBCUT SCH (09:00)
[2016-10-20] MEDS ORDERED: ASPIRIN EC 81 MG TABLET PO SCH (09:00)
[2016-10-20] MEDS: LEVOFLOXACIN INJ 500 MG in PREMIX 1 EACH IV SCH (09:33)
[2016-10-20] MEDS: FUROSEMIDE 40 MG TABLET PO SCH (09:34)
[2016-10-20] MEDS: LISINOPRIL 5 MG TABLET PO SCH (09:34)
[2016-10-20] MEDS: SPIRONOLACTONE 25 MG TABLET PO SCH (09:34)
[2016-10-20] MEDS: PANTOPRAZOLE 40 MG TABLET PO SCH (09:34)
[2016-10-20] MEDS: glyBURIDE 5 MG TABLET PO SCH (09:34)
[2016-10-20] MEDS: PENTOXIFYLLINE 400 MG TABLET PO SCH (09:34)
[2016-10-20] MEDS: CARVEDILOL 25 MG TABLET PO SCH (09:35)
--- NOTE | 2016-10-20 10:47 | Pathology Report from [facility] ---
ACCESSION # : [id number] PATIENT NAME : Pat Lara ORDERING DR : ZION NANCE MD CLINICAL HX: Osteomyelitits due to Type 2 DM POST-OP DX: Same SPECIMEN INFO: LT foot 2nd toe bone & tissue GROSS DESCRIPTION: The specimen is received in formalin labeled with the patient 's name and consists of an aggregate of debrided tissue measuring 3.0 x 2.5 x 0.8 cm. Staffing Clerk sections submitted in one cassette. DIAGNOSIS FOR PAT LARA: LEFT FOOT 2ND TOE: Dry gangrene and chronic osteomyelitis. SERVICE DATE: 10/19/2016 REPORT DATE: 10/20/2016 PATHOLOGIST: Laura Leary III, M.D. MTDD
--- NOTE | 2016-10-20 10:52 | General Surgery Progress Note ---
Assessment and Plan - Time spent with patient Time spent with patient: Less than 30 minutes (Postop labs are stable. Pulmonary micro reveals no growth.) (1) Osteomyelitis due to type 2 diabetes mellitus Status: Acute Assessment and plan: 10/20/2016 Stable postop amputation of left distal second toe. At this point there is no growth seen on his preliminary bone cultures. We will begin showing his family how to manage his wound, and it is okay with us to continue his Levaquin p.o. and discharge home. reference services head has arranged for some visits with [facility] [place] to monitor his progress, and we will see him in the office in 2-3 weeks. 10/17/16 Probable osteomyelitis of the distal left 2nd toe with x ray evidence of bony distruction. There is some drainage present and clinical signs of chronic infection present and elevated CRP and ESR. His He has good palpable pulses and evidence of healing in the foot with previously amputated left great toe. We discussed the need for excisional debridement/amputation of at least the distal tuft of the left 2nd toe. He is in agreement with surgery. His Pradaxa & Metformin have been held. Will post for surgery; Anesthesia will likely require a cardiac clearance, so we'll go ahead and request a consult. Current Visit: Yes (2) Atrial flutter Status: Chronic Assessment and plan: 10/17/16 Pt with history of atrial flutter, s/p ablation. His Pradaxa has been held and we will ask Cardiology to clear prior to surgery. We anticipate he will require minimal anesthesia for this procedure. Current Visit: No Subjective Patient reports: Present: other (Mild to moderate postop pain.) Exam - Constitutional Vitals: Period Temp Pulse Resp BP Sys/Jin Pulse Ox Last 24 Hr 97.1 F-98.6 F 63-84 18-20 112-151/75-100 94-100 General appearance: no acute distress - Respiratory Respiratory exam: Present: clear to auscultation bilaterally - Cardiovascular Cardiovascular exam: Present: RRR - Extremities Exam Extremities exam: Present: other (Patient is currently being shown how to ambulate with crutches, his dressing is dry, and there is no strikethrough bleeding noted on his left lower extremity dressing.) Results - Labs CBC & BMP: 10/20/16 04:47 10/20/16 04:47 Lab Results: I have reviewed the past 24 hour labs (Postop labs are stable.) Quality Measures - VTE Contraindication to Pharmacological VTE Prophylaxis: Already on Theraputic Agent , No Prophylaxis Needed - Stroke Symptom Onset Unknown: No
--- NOTE | 2016-10-20 11:01 | Discharge Summary ---
Hospital Course - Hospital Course Hospital Course: Mr. Lara is a 41-year-old male who was admitted with osteomyelitis of his left second toe. He was initiated on antibiotics and seen by surgery who performed a partial amputation. Patient tolerated the procedure well and will be discharged with continuation of antibiotics. Of note his Pradaxa was held for surgery which he will continue as an outpatient. By discharge he had met maximum benefit of hospitalization. I spent 36 minutes coordinating this discharge. - Time spent with patient Time with patient DS: Greater than 30 minutes Diagnosis - Discharge Diagnosis (1) Osteomyelitis due to type 2 diabetes mellitus Status: Acute (2) Diabetes mellitus Status: Chronic (3) Paroxysmal atrial fibrillation Status: Chronic (4) CHF (congestive heart failure) Status: Chronic Specialty Discharge - Follow Up or Referrals Follow up with: Ethan White MD [Physician] - 11/16/16 9:15 am (PLEASE BRING WITH YOU THE PACKET THE OFFICE GOING TO MAIL TO YOU. PLEASE BRING ALL MEDICATIONS, I.D. AND WITH YOU TO YOUR APPOINMENT) Discharge Plan - Discharge Data Disposition: Disch To Home/Self Care Condition at Discharge: Stable Discharge Diet: advance to your usual diet Activity: ambulate only with your walker, as per physical therapy - Discharge Medications New Levofloxacin Tab [Levaquin Tab] 500 mg PO DAILY #8 tablet Skin Healing Oint (Aquaphor) [Aquaphor] 1 applic TOP PRN PRN #1 applic PRN Reason: Dry Skin Pentoxifylline [TRENtal] 400 mg PO TID #90 tablet Continue metFORMIN [Glucophage] 1,000 mg PO BID W/MEALS Carvedilol 25 mg PO BID Dabigatran [Pradaxa] 150 mg PO BID Pravastatin [Pravachol] 40 mg PO BEDTIME Omeprazole 20 mg PO DAILY Lisinopril 10 mg PO DAILY Spironolactone [Aldactone] 25 mg PO DAILY glyBURIDE [Glyburide] 5 mg PO DAILY Furosemide 40 mg PO DAILY Aspirin EC Tab 81 mg PO DAILY #30 tablet - Follow Up or Referral Follow Up: Ethan White MD [Physician] - 11/16/16 9:15 am (PLEASE BRING WITH YOU THE PACKET THE OFFICE GOING TO MAIL TO YOU. PLEASE BRING ALL MEDICATIONS, I.D. AND WITH YOU TO YOUR APPOINMENT) - Forms/Instructions Exam - Constitutional Vitals: Period Temp Pulse Resp BP Sys/Jin Pulse Ox Last 24 Hr 97.1 F-98.6 F 63-84 18-20 112-151/75-100 94-100 General appearance: normal weight, no acute distress - Head Head exam: Present: normal inspection, normocephalic, atraumatic - Eye Eye exam: Present: EOMI Pupils: Present: CASTRO - ENT ENT exam: Present: normal exam - Neck Neck exam: Present: normal inspection - Respiratory Respiratory exam: Present: clear to auscultation bilaterally. Absent: accessory muscle use, prolonged expiratory phase, wheezes - Cardiovascular Cardiovascular exam: Present: regular rate and rhythm. Absent: bradycardia, irregular rhythm, systolic murmur - GI/Abdominal GI/Abdominal exam: Present: normal bowel sounds. Absent: ascites, distended, hypoactive bowel sounds, tenderness Discharge Results Procedures and tests throughout hospitalization: Pending Orders 10/19/16 Tissue (Biopsy) Culture and GS Routine Labs on day of discharge: Labs from last 24 hours 10/20/16 10/20/16 10/20/16 09:51 04:47 04:47 WBC 6.2 RBC 4.22 Hgb 12.0 L Hct 35.6 L MCV 84.4 L MCH 28 MCHC 33.7 RDW 12.8 Plt Count 155 MPV 12.0 Neut % (Auto) 57.7 Lymph % (Auto) 26.7 [place] % (Auto) 12.4 Eos % (Auto) 2.4 Baso % (Auto) 0.5 Neut # (Auto) 3.6 Lymph # (Auto) 1.6 [place] # (Auto) 0.8 Eos # (Auto) 0.2 Baso # (Auto) 0.0 Immature Gran % 0.3 Nucleated RBC % 0.0 Immature Gran # 0.02 Nucleated RBCs # 0.00 Sodium 141 Potassium 4.6 Chloride 105 Carbon Dioxide 30 Anion Gap 10.6 BUN 21 H Creatinine 1.50 H GFR Calculation 92 BUN/Creatinine Ratio 14.00 Glucose 143 H POC Glucose 185 H Calculated Osmolality 285.3 Calcium 8.9 10/19/16 10/19/16 10/19/16 19:24 16:27 10:34 WBC RBC Hgb Hct MCV MCH MCHC RDW Plt Count MPV Neut % (Auto) Lymph % (Auto) [place] % (Auto) Eos % (Auto) Baso % (Auto) Neut # (Auto) Lymph # (Auto) [place] # (Auto) Eos # (Auto) Baso # (Auto) Immature Gran % Nucleated RBC % Immature Gran # Nucleated RBCs # Sodium Potassium Chloride Carbon Dioxide Anion Gap BUN Creatinine GFR Calculation BUN/Creatinine Ratio Glucose POC Glucose 137 H 124 H 149 H Calculated Osmolality Calcium Preliminary micro results at discharge 10/19/16 Unknown Tissue Culture - Preliminary Bone - Left No growth at 24 hours DS: Provider Date of admission: 10/16/16 21:40 Primary care physician: Ck Aguilar Attending physician on admission: Hero Agustin MD Consults: 10/16/16 22:22 Consult to Physician [CONS] Routine Comment: left toe osteomyelitis in diabetic Consulting Provider: Ethan White Person Notified: Paula Date Notified: 10/17/16 Time Notified: 08:45 Consult to Wound Care - [facility] [CONS] Routine Reason for Wound Care: Wound Care Management Consult Comment: left toe, ankle 10/17/16 10:14 Consult to Physician [CONS] Routine Comment: Dr Chadwick pt;recent ablation. Consulting Provider: Cardiology - [facility] Person Notified: Dr. Collins Date Notified: 10/17/16 Time Notified: 13:30 Consult Notification Comment: Pt needs toe amp; will require minimal anesthesia. Pradaxa has been held. 10/17/16 10:18 Consult to Anesthesiology [CONS] Routine Consulting Provider: Reason for Anesthesiology: Pre-op Clearance 10/19/16 09:43 Consult to Case Mgmt/Social Srvs [CONS] Routine Reason for Case Mgmt/Social Srvs: Discharge Planning Consult Comment: home health for wound care Consult to Physical Therapy [CONS] Routine Reason for Physical Therapy: Evaluate and Treat Start Therapy: Tomorrow Consult Comment: ambulate with only heel touch on the left 10/19/16 10:14 Consult to Pharmacy [CONS] Routine Reason for Pharmacy Consult: Adjust Meds Renal Funct Discharging clinician: Ifrah Whaley MD Expected date of discharge: 10/20/16
[2016-10-20 13:59] VITALS: BP 109/55
[2016-10-20] MEDS: INSULIN REGULAR 100 UNIT/ML SUBCUT SCH (14:43)
== END 2016-10-20 14:08 | disposition home or self-care (01) | DRG 629 ==
LOC: N.ED 20:09 → N.EDINP 21:40 → SUATTDRO 21:40 → N.EDINP 22:08 → N.2E 22:21
PROVIDERS: ADMIT Student in an Organized Health Care Education/Training Program; ATTEND Internal Medicine

== ENCOUNTER 2017-02-27 20:25 | Inpatient (IN) ==
[2017-02-27] MEDS ORDERED: ONDANSETRON 4 MG/2 ML VIAL IV STA (21:20)
[2017-02-27] MEDS ORDERED: SODIUM CHLORIDE 0.9% 1,000 ML IV STA (21:20)
[2017-02-27] MEDS ORDERED: PANTOPRAZOLE 40 MG VIAL IV STA (21:24)
[2017-02-27] MEDS ORDERED: METOCLOPRAMIDE 10 MG/2 ML VIAL IV STA (21:24)
--- NOTE | 2017-02-27 21:33 | Emergency Department Note ---
Arrival - Arrival Chief Complaint: Nausea/Vomiting/Diarrhea Stated Complaint: nausea,dizzy,hard to breathe ED Nursing Triage Note: Patient reports for the last 2 days he has felt nauseated and sensation of wanting to pass out. States he has a toe amputated approx 2 years ago. Notices an ulcer appear. Being treated by dr salazar with leah. Patient is NIDDM. Mode of Arrival: Ambulatory Limitations: No Limitations Source: Patient Time Seen by Provider: 02/27/17 21:20 - History of Present Illness HPI Narrative: This 41-year-old black male has had 2 days of nausea and intermittent vomiting, diarrhea, chills, abdominal cramping, chest pain, near syncope, and dizziness. In this regard he denies heartburn, belching, water brash, shortness of breath, blurry vision, slurred speech, headache, focal deficits. He has diabetic but has kept his sugars under good control with his Accu-Chek in triage at 85. Of note, the patient has atrial fibrillation on Pradaxa. Currently rest in bed he appears in no acute distress. Onset (ago): day(s) (Patient presents 2 days post onset of symptoms) Allergies/Adverse Reactions: Allergies Allergy/AdvReac Type Severity Reaction Status Date / Time No Known Allergies Allergy Verified 07/13/16 07:48 Home Medications: Home Medications Medication Instructions Recorded Confirmed Type Carvedilol 25 mg PO BID 10/16/15 02/27/17 History Dabigatran [Pradaxa] 150 mg PO BID 10/16/15 02/27/17 History Furosemide 40 mg PO DAILY 10/16/15 02/27/17 History Lisinopril 10 mg PO DAILY 10/16/15 02/27/17 History Omeprazole 20 mg PO DAILY 10/16/15 02/27/17 History Pravastatin [Pravachol] 40 mg PO BEDTIME 10/16/15 02/27/17 History Spironolactone [Aldactone] 25 mg PO DAILY 10/16/15 02/27/17 History glyBURIDE [Glyburide] 5 mg PO DAILY 10/16/15 02/27/17 History metFORMIN [Glucophage] 1,000 mg PO BID W/MEALS 10/16/15 02/27/17 History Aspirin EC Tab 81 mg PO DAILY #30 tablet 07/14/16 02/27/17 Rx Skin Healing Oint (Aquaphor) 1 applic TOP PRN PRN #1 applic 10/20/16 02/27/17 Rx [Aquaphor] Review of System - Review of System 12 point system: reviewed and no additional remarkable complaints except as stated - Review of System Constitutional: Present: as per HPI Respiratory: Present: as per HPI Cardiovascular: Present: as per HPI Gastrointestinal: Present: as per HPI Neurological: Present: as per HPI Medical,Surgical,& Family Hx - Medical History Cardio: History of: Cardiac Dysrhythmia (atrial fib, atrial flutter -status post flutter ablation with PAF), CHF (nonischemic cardiomyopathy with normalized EF as of 03/2016), Hypertension, Cardiovascular Problems Neurology: No history of: Seizures Endocrine: History of: Diabetes Mellitus (NIDDM), Dyslipidemia Renal: History of: Renal Failure (Only knows numbers are slightly up) Musculoskeletal: History of: Amputation (left great toe) - Surgical History Cardiac Surgeries: Sugical HX of: Cardiac Catheterization (Normal coronary arteries 2012) Thoracic Surgeries: Patient denies;: Organ Transplant Neurologic Surgeries: Patient denies: Neurologic Surgery HEENT Surgeries: Patient denies: Thyroid Surgery, Tonsilectomy & Adenoidectomy - Family History Family History: Reports;: Family Heart Disease, Family Hypertension - Social History Smoking Status: Never smoker Frequency of Alcohol Use: None Type of Drug Use: None Exam Physical Examination: GENERAL: Well developed, well nourished black male in no acute distress. HEENT: Normocephalic. No trauma. Moist mucous membranes. EOMI. PERRLA. ENT NML NECK: Supple. No adenopathy. CARDIAC: Irregular. No murmurs. Heart rate 112 CHEST: Clear to auscultation. No respiratory distress. O2 sat 96% ABDOMEN: Soft. Nontender. Active bowel sounds. EXTREMITIES: No trauma. Normal ROM. No pedal edema. SKIN: No diaphoresis. No rash. NEURO: Alert. Oriented 3. Motor, sensory, vibratory intact. No focal deficits. Vital Signs: Vital Signs Temperature 98.8 F 02/27/17 20:29 Pulse Rate 116 H 02/27/17 20:29 Respiratory Rate 22 02/27/17 20:29 Blood Pressure 118/74 02/27/17 20:29 O2 Sat by Pulse Oximetry 96 02/27/17 20:29 Course - Reevaluation(s) Reevaluation #1: Discussed with patient need for hospitalization given his renal function, resting tachycardia, and persistent symptoms. - Consultations Consultation #1: Discussed with hospitalist service who will admit for further evaluation treatment. Results - Labs CBC & BMP: 02/27/17 21:26 02/27/17 21:26 Labs: I have reviewed the laboratory and noted the azotemic laboratory results. - Impressions EKG: Atrial fibrillation at 120. Normal QRS duration. Nonspecific ST changes. No acute injury pattern noted. - Diagnostic Findings Procedure: Chest x-ray: pending, image reviewed by me (Clear lung conley but question of right paratracheal mass versus node), CT - chest: image reviewed by me, report reviewed by me (Chest: No acute disease.), CT: image reviewed by me, report reviewed by me (Head: Normal brain) Disposition Clinical Impression: Dehydration, Diabetes, Renal azotemia, Atrial fibrillation Case discussed with: patient Disposition: Still a Patient Condition: Guarded Time of Disposition: 00:03
--- NOTE | 2017-02-27 21:41 | EKG Report ---
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
[2017-02-27] MEDS ORDERED: ONDANSETRON 4 MG/2 ML VIAL ONE (21:45)
[2017-02-27] MEDS ORDERED: PANTOPRAZOLE 40 MG VIAL IV ONE (21:45)
[2017-02-27] MEDS ORDERED: METOCLOPRAMIDE 10 MG/2 ML VIAL ONE (21:45)
[2017-02-27 21:55] LABS: Basophils % 0.3 % (0.0-0.8); Eosinophils # 0.1 10*3/uL (0.0-0.87); Eosinophils % 2.2 % (0.00-10.9); Hematocrit 32.8 VOL% (42.0-52.0); Hemoglobin 10.9 GM/DL (14.0-18.0); Immature Granulocytes % 0.3 %; Immature Granulocytes Absolute 0.02 #; Lymphocytes # 1.5 10*3/uL (1.4-4.0); Lymphocytes % 24.4 % (21.2-54.2); Mean Corpuscular HGB Conc 33.2 GM/DL (32-36); Mean Corpuscular Hemoglobin 28 PG (27-34); Mean Corpuscular Volume 84.5 FL (87-102); Mean Platelet Volume 11.3 FL (9.6-12.0); Monocytes # 0.8 10*3/uL (0.11-0.8); Monocytes % 13.5 % (1.7-12.7); Neutrophils # 3.6 10*3/uL (1.4-7.4); Neutrophils % 59.3 % (38.7-73.9); Platelet Count 174 T/CUMM (130-400); Red Blood Count 3.88 MC/CUMM (3.8-5.5); Red Cell Distribution Width 12.6 % (9.3-17.3)
[2017-02-27 22:00] LABS: Apearance,Urine CLEAR (Clear); Bilirubin,Urine Negative (Negative); Blood, Urine Small mg/dL (Negative); Glucose,Urine (UA) Negative (Negative); Hyaline Casts,Urine 3 /LPF (0-3); Ketones,Urine Negative (Negative); Mucus,Urine Occasional /LPF (Occasional); Nitrite,Urine Negative (Negative); Protein,Urine Negative; RBC,Urine <1 /HPF (0-4); Squamous Epithelial Cell,Urine Occasional /HPF (0-10); Urine Color Straw (Yellow); Urine Urobilinogen < 2.0 EU/DL (0.2-1.0); WBC,Urine 1 /HPF (0-6)
[2017-02-27 22:27] LABS: Alanine Aminotransferase 29 U/L (16-61); Albumin 3.6 G/DL (3.4-5.0); Alkaline Phosphatase 62 U/L (45-117); Amylase 56 U/L (25-115); Aspartate Amino Transferase 15 U/L (0-37); Blood Urea Nitrogen 55 MG/DL (7-18); Glucose 73 MG/DL (74-106); Osmolality,Calculated 290.5 MOS/KG (273-304); Potassium 4.5 MMOL/L (3.5-5.1); Sodium 139 MMOL/L (136-145); Total Protein 7.9 G/DL (6.4-8.3); Troponin I Only < 0.015 NG/ML (0.00-0.045)
[2017-02-28] MEDS ORDERED: ACETAMINOPHEN 325 MG TABLET PO PRN (00:04)
[2017-02-28] MEDS ORDERED: ONDANSETRON 4 MG/2 ML VIAL IV PRN (00:04)
[2017-02-28] MEDS ORDERED: DEXTROSE 50% 25 GM/50 ML SYRINGE IV PRN (00:04)
[2017-02-28] MEDS ORDERED: GLUCAGON 1 MG VIAL IM PRN (00:04)
[2017-02-28] MEDS ORDERED: ENOXAPARIN 40 MG/0.4 ML SYRINGE SUBCUT SCH (00:30)
--- NOTE | 2017-02-28 00:55 | Hospitalist History & Physical ---
Assessment and Plan (1) Acute kidney injury Status: Acute Assessment and plan: elevated creatinine of 2.5. This is due to volume depletion and dehydration related to GI fluid loss from N/V/Diarrhea. IVF started Nephrotoxic meds held including TIANNA-i, aldactone and lasix, and metformin repeat renal fxn labs in am Current Visit: Yes (2) Acute gastroenteritis Status: Acute Assessment and plan: check stool cultures/wbc, etc. IVF hydration and supportive care. Current Visit: Yes (3) Diabetes mellitus Status: Chronic Assessment and plan: continue glyburide and SSI with accu checks. Hold metformin for now. 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 Hold tianna-i and diuretics Current Visit: Yes Qualifiers: Hypertension type: essential hypertension Qualified Code(s): I10 - Essential (primary) hypertension (5) Paroxysmal atrial fibrillation Status: Chronic Assessment and plan: continue pradaxa and coreg. Current Visit: Yes History of Present Illness Chief complaint: Nausea vomiting and diarrhea. Dizzy. History of present illness: Mr. Lara is a 41 year old male with a past medical history of atrial fibrillation and diabetes mellitus as well as hypertension presents to the emergency department with a 2 day history of nausea vomiting and diarrhea with headache and dizziness. He was found to be acutely dehydrated with acute renal failure. He was tachycardic on presentation and persisted after receiving a liter of fluids. He reports getting ill on with nausea vomiting and diarrhea. He denies any blood in his stools or coffee-ground emesis. He reports watery stools with minimal abdominal cramping. He denies any sick contacts. He reports eating some food at [employer] on Wednesday evening. He also started Bactrim DS tablets by mouth twice daily on Wednesday for an ulceration on his left foot. The patient denies any drainage from the ulcer and there is no signs of active infection at this time. He is seen by Dr. White for wound care. Mr. Lara denies any fever or chills. He has not been able to keep food and water down for the last 24 hours. His creatinine is acutely elevated at 2.5. He is on multiple medications including diuretics and TIANNA inhibitor as well as metformin and most recently the addition of Bactrim which of all contributed to his acute kidney injury. I was consulted to admit the patient for IV fluid hydration and repeat renal function testing. Of note he has atrial fibrillation and is controlled with Coreg and Pradaxa. He sees Dr. Chadwick and Dr. Collins. His home medications were reviewed and reconciled. He is a full code. His was at the bedside and is his primary healthcare proxy and surrogate decision-maker. Home Medications Medication Instructions Recorded Confirmed Type Carvedilol 25 mg PO BID 10/16/15 02/27/17 History Dabigatran [Pradaxa] 150 mg PO BID 10/16/15 02/27/17 History Furosemide 40 mg PO DAILY 10/16/15 02/27/17 History Lisinopril 10 mg PO DAILY 10/16/15 02/27/17 History Omeprazole 20 mg PO DAILY 10/16/15 02/27/17 History Pravastatin [Pravachol] 40 mg PO BEDTIME 10/16/15 02/27/17 History Spironolactone [Aldactone] 25 mg PO DAILY 10/16/15 02/27/17 History glyBURIDE [Glyburide] 5 mg PO DAILY 10/16/15 02/27/17 History metFORMIN [Glucophage] 1,000 mg PO BID W/MEALS 10/16/15 02/27/17 History Aspirin EC Tab 81 mg PO DAILY #30 tablet 07/14/16 02/27/17 Rx Skin Healing Oint (Aquaphor) 1 applic TOP PRN PRN #1 applic 10/20/16 02/27/17 Rx [Aquaphor] Allergies Allergy/AdvReac Type Severity Reaction Status Date / Time No Known Allergies Allergy Verified 07/13/16 07:48 Medical,Surgical,& Family Hx - Medical History Cardio: History of: Cardiac Dysrhythmia (atrial fib, atrial flutter -status post flutter ablation with PAF), CHF (nonischemic cardiomyopathy with normalized EF as of 03/2016), Hypertension, Cardiovascular Problems Neurology: No history of: Seizures Endocrine: History of: Diabetes Mellitus (NIDDM), Dyslipidemia Renal: History of: Renal Failure (Only knows numbers are slightly up) Musculoskeletal: History of: Amputation (left great toe) - Surgical History Cardiac Surgeries: Sugical HX of: Cardiac Catheterization (Normal coronary arteries 2012) Thoracic Surgeries: Patient denies;: Organ Transplant Neurologic Surgeries: Patient denies: Neurologic Surgery HEENT Surgeries: Patient denies: Thyroid Surgery, Tonsilectomy & Adenoidectomy - Family History Family History: Reports;: Family Heart Disease, Family Hypertension - Social History Smoking Status: Never smoker Have you smoked in the last 12 months: No Frequency of Alcohol Use: None Type of Drug Use: None 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 Marital Status: Lives With:: Spouse Functional capacity: independent ambulation 12 point system: reviewed and no additional remarkable complaints except as stated Exam - Constitutional Vitals: Period Temp Pulse Resp BP Sys/Jin Pulse Ox Last 24 Hr 98.8 F 116 22 118/74 96 Exam: Constitutional System: No distress. No tremulousness. Head: Normocephalic, atraumatic. Ears, Nose and Throat System: No pain or tenderness. No epistaxis or discharge Eyes System: Pupils equal, round, and reactive. Extraocular muscles intact. Neck: Supple, without adenopathy, No jugular venous distention. No thyromegaly, neck mass, or prior surgery apparent. Respiratory System: Chest clear to auscultation. Cardiovascular System: Heart with irregular and tachycardic rate and rhythm. No murmur. GI System: Abdomen soft, nontender. Normo active bowel sounds present. Musculoskeletal System: limbs with no pedal edema. Full distal pulses. Normal capillary refill. Status post left great toe amputation. Small ulceration noted on the plantar surface of the left foot without drainage or foul-smelling discharge. Neurological System: No discernable sensory deficit. No aphasia Psychiatric System: Conversation is rational Results - Labs CBC & BMP: 02/27/17 21:26 02/27/17 21:26 Lab Results: I have reviewed the past 24 hour labs
[2017-02-28] MEDS: SODIUM CHLORIDE 0.9% 1,000 ML IV SCH ×3 (01:38→17:57)
[2017-02-28 04:19] LABS: Basophils % 0.4 % (0.0-0.8); Eosinophils # 0.1 10*3/uL (0.0-0.87); Eosinophils % 2.3 % (0.00-10.9); Hematocrit 30.4 VOL% (42.0-52.0); Immature Granulocytes % 0.2 %; Immature Granulocytes Absolute 0.01 #; Lymphocytes # 1.4 10*3/uL (1.4-4.0); Lymphocytes % 27.7 % (21.2-54.2); Mean Corpuscular HGB Conc 32.9 GM/DL (32-36); Mean Corpuscular Hemoglobin 28 PG (27-34); Mean Corpuscular Volume 84.4 FL (87-102); Mean Platelet Volume 11.4 FL (9.6-12.0); Monocytes # 0.8 10*3/uL (0.11-0.8); Monocytes % 15.9 % (1.7-12.7); Neutrophils # 2.8 10*3/uL (1.4-7.4); Neutrophils % 53.5 % (38.7-73.9); Platelet Count 140 T/CUMM (130-400); Red Cell Distribution Width 12.4 % (9.3-17.3); White Blood Count 5.2 T/CUMM (4-12)
[2017-02-28 04:42] LABS: Calcium 8.8 MG/DL (8.5-10.1); Osmolality,Calculated 290.4 MOS/KG (273-304); Potassium 4.5 MMOL/L (3.5-5.1)
[2017-02-28 06:40] LABS: Band Neutrophils 5 % (0-10); Eosinophils 2 % (0-10); Lymphocytes 18 % (20-55); Myelocytes 3 %; Segmented Neutrophils 64 % (50-85)
[2017-02-28 06:41] LABS: Platelet Estimate Adequate; Total Cells Counted 100
[2017-02-28] MEDS ORDERED: metFORMIN 500 MG TABLET PO SCH (08:00)
--- NOTE | 2017-02-28 08:01 | CT Report ---
CT of the head without contrast. Indication: Dizziness. Near-syncope. No previous study. There is [facility]. The ventricles are normal in size and configuration. There is no mass effect, midline shift, or area of hemorrhage. No ischemic lesions are seen. The calvarium is intact. The included paranasal sinuses and the mastoid air cells are clear. Impression: No abnormality is seen. The CT exam was performed using one or more of the following dose reduction techniques: Automated exposure control, adjustment of the mA and/or kV according to patient size, or use of iterative reconstruction technique. PROCEDURE INTERPRETED AT [facility] DEPARTMENT OF RADIOLOGY Final Report Signed by: Dr. Latrice Woo
--- NOTE | 2017-02-28 08:03 | XRay Report ---
PA and lateral chest. Indication: Shortness of breath. Comparison: July 01, 2016. The heart is normal in size. The pulmonary vasculature is normal. There are scattered mild areas of atelectasis seen in the lung bases. No consolidation, pneumothorax, or pleural effusion. Osseous structures are unremarkable. Impression: Scattered basilar atelectasis. PROCEDURE INTERPRETED AT [facility] DEPARTMENT OF RADIOLOGY Final Report Signed by: Dr. Latrice Woo
--- NOTE | 2017-02-28 08:06 | CT Report ---
CT of the chest without contrast. Indication: Right paratracheal mass. Axial images were obtained with sagittal and coronal 2-D reconstructions. No previous study. There is a preliminary report from [facility]. The thyroid gland is somewhat low-lying, being at the thoracic inlet. No other abnormality of the thyroid is seen. There is no supraclavicular or axillary lymphadenopathy. There is minimal residual thymus present. There is mild calcific plaque present within a normal caliber thoracic aorta. The heart is upper limits of normal in size. There is coronary artery calcification, and some mitral calcification as well. There is no pericardial or pleural effusion. No adenopathy is seen. The lung conley are clear. No suspicious masses are noted. Degenerative changes are present within the spinal column. Impression: 1. No suspicious findings are seen. 2. The thyroid gland is low lying, being at the thoracic inlet. 3. Early atherosclerotic disease. The CT exam was performed using one or more of the following dose reduction techniques: Automated exposure control, adjustment of the mA and/or kV according to patient size, or use of iterative reconstruction technique. PROCEDURE INTERPRETED AT [facility] DEPARTMENT OF RADIOLOGY Final Report Signed by: Dr. Latrice Woo
[2017-02-28] MEDS: INSULIN LISPRO 100 UNIT/ML SUBCUT SCH ×4 (08:27→20:46)
--- NOTE | 2017-02-28 09:24 | Hospitalist Progress Note ---
Assessment and Plan (1) Diabetes mellitus Status: Chronic Assessment and plan: His blood glucose this morning is 124. He is being treated with glyburide and sliding scale insulin coverage. His metformin was temporarily discontinued. 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 He has been treated with intravenous sodium chloride 0.9% infusion. His BUN and creatinine today have decreased to 45 and 1.8 respectively. I will continue the sodium chloride 0.9% infusion. Current Visit: Yes (3) Acute gastroenteritis Status: Acute Assessment and plan: He appears improved today he is experiencing only mild abdominal pain and no diarrhea, nausea, or vomiting. He has begun eating. If he has been able to resume normal eating by tomorrow morning, he will be discharged at that time. Current Visit: Yes Hospitalist: Subjective Interval history: Mr. Lara was admitted to the hospital yesterday with acute gastroenteritis, dehydration, and acute kidney injury secondary to dehydration. He is doing better today. He is experiencing only mild to moderate abdominal cramping pain. He is not experiencing diarrhea, nausea, or vomiting. He has begun eating liquids and soft solid food. Exam - Constitutional Vitals: Period Temp Pulse Resp BP Sys/Jin Pulse Ox Last 24 Hr 98.0 F-98.8 F 97-148 18-22 118-127/68-93 95-98 General appearance: no acute distress - Head Head exam: Present: normal inspection - Neck Neck exam: Present: normal inspection - Respiratory Respiratory exam: Present: clear to auscultation bilaterally - Cardiovascular Cardiovascular exam: Present: regular rate and rhythm - GI/Abdominal GI/Abdominal exam: Present: normal bowel sounds, soft, other (Nontender with no palpable masses or hepatosplenomegaly.) - Extremities Exam Extremities exam: Present: normal inspection - Skin Skin exam: Present: normal color, warm, dry Results - Labs CBC & BMP: 02/28/17 03:26 02/28/17 03:26
[2017-02-28] MEDS: CARVEDILOL 25 MG TABLET PO SCH ×2 (09:56→17:56)
[2017-02-28] MEDS: DABIGATRAN 150 MG CAPSULE PO SCH ×2 (09:56→20:44)
[2017-02-28] MEDS: ASPIRIN EC 81 MG TABLET PO SCH (09:56)
[2017-02-28] MEDS: glyBURIDE 5 MG TABLET PO SCH (09:56)
[2017-02-28] MEDS: LISINOPRIL 10 MG TABLET PO SCH (09:57)
[2017-02-28] MEDS: PANTOPRAZOLE 40 MG TABLET PO SCH (10:58)
[2017-02-28] MEDS ORDERED: PRAVASTATIN 40 MG TABLET PO SCH (21:00)
[2017-03-01] MEDS: SODIUM CHLORIDE 0.9% 1,000 ML IV SCH (02:17)
[2017-03-01 06:46] LABS: Basophils % 0.2 % (0.0-0.8); Eosinophils # 0.2 10*3/uL (0.0-0.87); Eosinophils % 3.6 % (0.00-10.9); Hematocrit 30.9 VOL% (42.0-52.0); Hemoglobin 10.4 GM/DL (14.0-18.0); Immature Granulocytes % 0.2 %; Immature Granulocytes Absolute 0.01 #; Lymphocytes # 1.3 10*3/uL (1.4-4.0); Lymphocytes % 30.7 % (21.2-54.2); Mean Corpuscular HGB Conc 33.7 GM/DL (32-36); Mean Corpuscular Hemoglobin 28 PG (27-34); Mean Corpuscular Volume 84.2 FL (87-102); Mean Platelet Volume 11.8 FL (9.6-12.0); Monocytes # 0.5 10*3/uL (0.11-0.8); Monocytes % 12.4 % (1.7-12.7); Neutrophils # 2.2 10*3/uL (1.4-7.4); Neutrophils % 52.9 % (38.7-73.9); Platelet Count 146 T/CUMM (130-400); Red Blood Count 3.67 MC/CUMM (3.8-5.5); Red Cell Distribution Width 12.3 % (9.3-17.3); White Blood Count 4.1 T/CUMM (4-12)
[2017-03-01 07:17] LABS: Calcium 8.8 MG/DL (8.5-10.1); Osmolality,Calculated 285.1 MOS/KG (273-304); Potassium 4.8 MMOL/L (3.5-5.1)
[2017-03-01] MEDS: INSULIN LISPRO 100 UNIT/ML SUBCUT SCH ×2 (08:16→11:25)
[2017-03-01] MEDS: ASPIRIN EC 81 MG TABLET PO SCH (08:40)
[2017-03-01] MEDS: DABIGATRAN 150 MG CAPSULE PO SCH (08:40)
[2017-03-01] MEDS: PANTOPRAZOLE 40 MG TABLET PO SCH (08:41)
[2017-03-01] MEDS: LISINOPRIL 10 MG TABLET PO SCH (08:41)
[2017-03-01] MEDS: glyBURIDE 5 MG TABLET PO SCH (08:41)
[2017-03-01] MEDS: CARVEDILOL 25 MG TABLET PO SCH (08:41)
--- NOTE | 2017-03-01 11:08 | Discharge Summary ---
Hospital Course - Hospital Course Hospital Course: This is a very pleasant 41-year-old male that presented to the ED at [facility] on the night of January 27, 2017 for the evaluation of nausea, vomiting, diarrhea, headache, and dizziness. The patient has a medical history significant for atrial flutter, nonischemic cardiomyopathy, congestive heart failure, diabetes mellitus, hypertension, and dyslipidemia. The patient is a surgical history significant for cardiac catheterization, and cardiac ablation. The patient reported the onset of symptoms 2 days prior to presentation. He reported that he had a gradual onset of nausea, vomiting, and diarrhea that gradually worsened. As his symptoms progressed, the patient reported headache and dizziness. In addition, the patient denied any recent sick contacts and the presence of melena or hematochezia. He reported that he started to experience any symptoms after attending [email or web address] service on Wednesday evening in which he had dinner after the service. He also reported a recent initiation of Bactrim DS by his wound care doctor Dr. White for the treatment of an ulceration on his left foot. His symptoms became very severe prompting him to present to the ED for further evaluation. Patient was seen and evaluated at the time of ED presentation. The patient was noted to be grossly tachycardic upon presentation with a heart rate recorded at 116. Labs were obtained which were significant for hemoglobin 10.9, hematocrit 32.8, chloride 108, BUN 55, creatinine 2.50, and glucose is 73. EKG was significant for atrial fibrillation with rate noted at 120, normal QRS duration , nonspecific ST changes, however no acute injury pattern was noted. Chest x- ray was significant for scattered basilar atelectasis. CT head without contrast was unremarkable for the presence of any acute intracranial processes. CT chest without contrast was significant for early atherosclerotic disease and low-lying findings of the thyroid gland which was noted at the thoracic inlet. The patient was subsequently admitted to the hospitalist service for continuation of care. Empiric antibiotic and aggressive fluid rehydration was initiated at the time of admission. The patient was placed on continuous cardiac monitoring. The patient's renal function gradually improved; and are noted at 20/1.00 today. The patient's condition is stable. He has not experienced any significant overnight events. 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 Discharge Plan - Discharge Medications No Action metFORMIN [Glucophage] 1,000 mg PO BID W/MEALS Carvedilol 25 mg PO BID Dabigatran [Pradaxa] 150 mg PO BID Pravastatin [Pravachol] 40 mg PO BEDTIME Omeprazole 20 mg PO DAILY Lisinopril 10 mg PO DAILY Spironolactone [Aldactone] 25 mg PO DAILY glyBURIDE [Glyburide] 5 mg PO DAILY Furosemide 40 mg PO DAILY Skin Healing Oint (Aquaphor) [Aquaphor] 1 applic TOP PRN PRN #1 applic PRN Reason: Dry Skin Aspirin EC Tab 81 mg PO DAILY #30 tablet - Follow Up or Referral - Forms/Instructions Exam - Constitutional Vitals: Period Temp Pulse Resp BP Sys/Jin Pulse Ox Last 24 Hr 97.7 F-98.9 F 121-134 18-22 116-149/63-94 95-97 Discharge Results Procedures and tests throughout hospitalization: Pending Orders 02/27/17 21:26 Blood Culture Stat 02/28/17 01:24 Stool Culture Routine Stool for WBCs Routine stool [C. Diff Toxins A & B] Routine Labs on day of discharge: Labs from last 24 hours 03/01/17 03/01/17 03/01/17 06:40 04:47 04:47 WBC 4.1 RBC 3.67 L Hgb 10.4 L Hct 30.9 L MCV 84.2 L MCH 28 MCHC 33.7 RDW 12.3 Plt Count 146 MPV 11.8 Neut % (Auto) 52.9 Lymph % (Auto) 30.7 [place] % (Auto) 12.4 Eos % (Auto) 3.6 Baso % (Auto) 0.2 Neut # (Auto) 2.2 Lymph # (Auto) 1.3 L [place] # (Auto) 0.5 Eos # (Auto) 0.2 Baso # (Auto) 0.0 Immature Gran % 0.2 Nucleated RBC % 0.0 Immature Gran # 0.01 Nucleated RBCs # 0.00 Immature Plt Fraction 0.0 Sodium 142 Potassium 4.8 Chloride 111 H Carbon Dioxide 23 Anion Gap 12.8 BUN 20 H Creatinine 1.00 GFR Calculation 149 BUN/Creatinine Ratio 20.00 Glucose 102 POC Glucose 116 H Calculated Osmolality 285.1 Calcium 8.8 02/28/17 02/28/17 02/28/17 20:09 16:42 11:53 WBC RBC Hgb Hct MCV MCH MCHC RDW Plt Count MPV Neut % (Auto) Lymph % (Auto) [place] % (Auto) Eos % (Auto) Baso % (Auto) Neut # (Auto) Lymph # (Auto) [place] # (Auto) Eos # (Auto) Baso # (Auto) Immature Gran % Nucleated RBC % Immature Gran # Nucleated RBCs # Immature Plt Fraction Sodium Potassium Chloride Carbon Dioxide Anion Gap BUN Creatinine GFR Calculation BUN/Creatinine Ratio Glucose POC Glucose 127 H 122 H 141 H Calculated Osmolality Calcium 02/27/17 20:34 WBC RBC Hgb Hct MCV MCH MCHC RDW Plt Count MPV Neut % (Auto) Lymph % (Auto) [place] % (Auto) Eos % (Auto) Baso % (Auto) Neut # (Auto) Lymph # (Auto) [place] # (Auto) Eos # (Auto) Baso # (Auto) Immature Gran % Nucleated RBC % Immature Gran # Nucleated RBCs # Immature Plt Fraction Sodium Potassium Chloride Carbon Dioxide Anion Gap BUN Creatinine GFR Calculation BUN/Creatinine Ratio Glucose POC Glucose 85 Calculated Osmolality Calcium Preliminary micro results at discharge 02/27/17 21:26 Blood Culture - Preliminary Blood No growth at 1 day 02/27/17 21:26 Blood Culture - Preliminary Blood No growth at 1 day DS: Provider Date of admission: 02/28/17 00:04 Primary care physician: Ck Aguilar Attending physician on admission: Ira John MD Discharging clinician: Mark Diaz CNP
[2017-03-01 11:24] VITALS: BP 160/94
--- NOTE | 2017-03-01 14:53 | Discharge Summary ---
Hospital Course - Hospital Course Hospital Course: This is a very pleasant 41-year-old male that presented to the ED at [facility] on the night of January 27, 2017 for the evaluation of nausea, vomiting, diarrhea, headache, and dizziness. The patient has a medical history significant for atrial flutter, nonischemic cardiomyopathy, congestive heart failure, diabetes mellitus, hypertension, and dyslipidemia. The patient is a surgical history significant for cardiac catheterization, and cardiac ablation. The patient reported the onset of symptoms 2 days prior to presentation. He reported that he had a gradual onset of nausea, vomiting, and diarrhea that gradually worsened. As his symptoms progressed, the patient reported headache and dizziness. In addition, the patient denied any recent sick contacts and the presence of melena or hematochezia. He reported that he started to experience any symptoms after attending [employer] service on Wednesday evening in which he had dinner after the service. He also reported a recent initiation of Bactrim DS by his wound care doctor Dr. White for the treatment of an ulceration on his left foot. His symptoms became very severe prompting him to present to the ED for further evaluation. Patient was seen and evaluated at the time of ED presentation. The patient was noted to be grossly tachycardic upon presentation with a heart rate recorded at 116. Labs were obtained which were significant for hemoglobin 10.9, hematocrit 32.8, chloride 108, BUN 55, creatinine 2.50, and glucose is 73. EKG was significant for atrial fibrillation with rate noted at 120, normal QRS duration , nonspecific ST changes, however no acute injury pattern was noted. Chest x- ray was significant for scattered basilar atelectasis. CT head without contrast was unremarkable for the presence of any acute intracranial processes. CT chest without contrast was significant for early atherosclerotic disease and low-lying findings of the thyroid gland which was noted at the thoracic inlet. The patient was subsequently admitted to the hospitalist service for continuation of care. Empiric antibiotic and aggressive fluid rehydration was initiated at the time of admission. The patient was placed on continuous cardiac monitoring. The patient's renal function gradually improved; and are noted at 20/1.00 today. The patient's condition is stable. He has not experienced any significant overnight events. 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 Discharge Plan - Discharge Data Condition at Discharge: Stable Discharge Diet: advance to your usual diet Activity: resume usual activities as tolerated Hygiene: no restrictions Weight Bearing at Discharge: full weight bearing Driving: no restrictions - Discharge Medications Continue metFORMIN [Glucophage] 1,000 mg PO BID W/MEALS Carvedilol 25 mg PO BID Dabigatran [Pradaxa] 150 mg PO BID Pravastatin [Pravachol] 40 mg PO BEDTIME Omeprazole 20 mg PO DAILY Lisinopril 10 mg PO DAILY Spironolactone [Aldactone] 25 mg PO DAILY glyBURIDE [Glyburide] 5 mg PO DAILY Furosemide 40 mg PO DAILY Skin Healing Oint (Aquaphor) [Aquaphor] 1 applic TOP PRN PRN #1 applic PRN Reason: Dry Skin Aspirin EC Tab 81 mg PO DAILY #30 tablet - Follow Up or Referral - Forms/Instructions Exam - Constitutional Vitals: Period Temp Pulse Resp BP Sys/Jin Pulse Ox Last 24 Hr 97.3 F-98.9 F 99-134 18-22 116-160/63-94 95-97 Discharge Results Procedures and tests throughout hospitalization: Pending Orders 02/27/17 21:26 Blood Culture Stat 02/28/17 01:24 Stool Culture Routine Stool for WBCs Routine stool [C. Diff Toxins A & B] Routine Labs on day of discharge: Labs from last 24 hours 03/01/17 03/01/17 03/01/17 11:25 06:40 04:47 WBC RBC Hgb Hct MCV MCH MCHC RDW Plt Count MPV Neut % (Auto) Lymph % (Auto) [place] % (Auto) Eos % (Auto) Baso % (Auto) Neut # (Auto) Lymph # (Auto) [place] # (Auto) Eos # (Auto) Baso # (Auto) Immature Gran % Nucleated RBC % Immature Gran # Nucleated RBCs # Immature Plt Fraction Sodium 142 Potassium 4.8 Chloride 111 H Carbon Dioxide 23 Anion Gap 12.8 BUN 20 H Creatinine 1.00 GFR Calculation 149 BUN/Creatinine Ratio 20.00 Glucose 102 POC Glucose 124 H 116 H Calculated Osmolality 285.1 Calcium 8.8 03/01/17 02/28/17 02/28/17 04:47 20:09 16:42 WBC 4.1 RBC 3.67 L Hgb 10.4 L Hct 30.9 L MCV 84.2 L MCH 28 MCHC 33.7 RDW 12.3 Plt Count 146 MPV 11.8 Neut % (Auto) 52.9 Lymph % (Auto) 30.7 [place] % (Auto) 12.4 Eos % (Auto) 3.6 Baso % (Auto) 0.2 Neut # (Auto) 2.2 Lymph # (Auto) 1.3 L [place] # (Auto) 0.5 Eos # (Auto) 0.2 Baso # (Auto) 0.0 Immature Gran % 0.2 Nucleated RBC % 0.0 Immature Gran # 0.01 Nucleated RBCs # 0.00 Immature Plt Fraction 0.0 Sodium Potassium Chloride Carbon Dioxide Anion Gap BUN Creatinine GFR Calculation BUN/Creatinine Ratio Glucose POC Glucose 127 H 122 H Calculated Osmolality Calcium 02/27/17 20:34 WBC RBC Hgb Hct MCV MCH MCHC RDW Plt Count MPV Neut % (Auto) Lymph % (Auto) [place] % (Auto) Eos % (Auto) Baso % (Auto) Neut # (Auto) Lymph # (Auto) [place] # (Auto) Eos # (Auto) Baso # (Auto) Immature Gran % Nucleated RBC % Immature Gran # Nucleated RBCs # Immature Plt Fraction Sodium Potassium Chloride Carbon Dioxide Anion Gap BUN Creatinine GFR Calculation BUN/Creatinine Ratio Glucose POC Glucose 85 Calculated Osmolality Calcium Preliminary micro results at discharge 02/27/17 21:26 Blood Culture - Preliminary Blood No growth at 1 day 02/27/17 21:26 Blood Culture - Preliminary Blood No growth at 1 day DS: Provider Date of admission: 02/28/17 00:52 Primary care physician: Ck Aguilar Attending physician on admission: Ira John MD Discharging clinician: Tamar Patel MD
== END 2017-03-01 15:51 | disposition home or self-care (01) | DRG 683 ==
LOC: N.EDINP 20:25 → N.ED 20:25 → SUATTDRO 02-28 00:04 → N.2E 02-28 00:56
PROVIDERS: ADMIT Family Medicine; ATTEND Hospitalist

== ENCOUNTER 2019-08-01 08:41 | Observation (INO) ==
[2019-08-01] MEDS ORDERED: ASPIRIN 325 MG TABLET PO STA (09:48)
[2019-08-01] MEDS ORDERED: DILTIAZEM 50 MG/10 ML VIAL IV STA (09:58)
[2019-08-01 10:08] LABS: Basophils % 0.3 % (0.0-0.8); Eosinophils # 0.2 10*3/uL (0.0-0.87); Eosinophils % 2.7 % (0.00-10.9); Hematocrit 39.3 VOL% (42.0-52.0); Hemoglobin 12.7 GM/DL (14.0-18.0); Immature Granulocytes % 0.3 %; Immature Granulocytes Absolute 0.02 #; Lymphocytes # 1.4 10*3/uL (1.4-4.0); Mean Corpuscular HGB Conc 32.3 GM/DL (32-36); Mean Corpuscular Volume 86.4 FL (87-102); Monocytes % 8.3 % (1.7-12.7); Neutrophils % 66.4 % (38.7-73.9); Platelet Count 199 T/CUMM (130-400); Red Blood Count 4.55 MC/CUMM (3.8-5.5); Red Cell Distribution Width 13.7 % (9.3-17.3); White Blood Count 6.2 T/CUMM (4-12)
[2019-08-01] MEDS ORDERED: HYDROmorphone 2 MG/1 ML VIAL IV STA (10:16)
[2019-08-01] MEDS ORDERED: ONDANSETRON 4 MG/2 ML VIAL IV STA (10:17)
[2019-08-01] MEDS ORDERED: ONDANSETRON 4 MG/2 ML VIAL ONE (10:20)
[2019-08-01] MEDS ORDERED: HYDROmorphone 2 MG/1 ML VIAL ONE (10:20)
[2019-08-01 10:21] LABS: INR 1.3; Partial Thromboplastin Time 31.6 SECS (20.8-36.0)
[2019-08-01 10:46] LABS: Albumin 4.4 G/DL (3.4-5.0); Bilirubin,Total 0.6 MG/DL (0.2-1.0); Calcium 9.2 MG/DL (8.5-10.1); Osmolality,Calculated 281.8 MOS/KG (273-304); Total Protein 8.8 G/DL (6.4-8.3)
[2019-08-01] MEDS: dilTIAZem Drip 125 MG/125 ML PREMIX IV SCH ×2 (10:48→22:54)
[2019-08-01 11:45] LABS: Apearance,Urine Slightly Hazy (Clear); Bilirubin,Urine Negative (Negative); Blood, Urine Negative (Negative); Glucose,Urine (UA) Negative (Negative); Hyaline Casts,Urine 16 /LPF (0-3); Ketones,Urine Negative (Negative); Mucus,Urine Occasional /LPF (Occasional); Nitrite,Urine Negative (Negative); Protein,Urine 30 MG/DL; RBC,Urine 2 /HPF (0-4); Sperm,Urine Occasional /HPF (Negative); Squamous Epithelial Cell,Urine Occasional /HPF (0-10); Urine Color Yellow (Yellow); Urine Specific Gravity 1.026 (1.001-1.035); WBC,Urine 1 /HPF (0-6)
[2019-08-01 12:00] LABS: Barbiturates Screen,Urine Negative (Negative); Benzodiazepines Screen,Urine Negative (Negative); Cannabinoid Screen,Urine Negative (Negative); Opiate Screen,Urine Negative (Negative); Phencyclidine Screen,Urine Negative (Negative)
[2019-08-01] MEDS ORDERED: SODIUM CHLORIDE 0.9% 1,000 ML IV STA (13:24)
[2019-08-01] MEDS ORDERED: GLUCAGON 1 MG VIAL IM PRN (14:31)
[2019-08-01] MEDS ORDERED: DEXTROSE 10% 250 ML BAG IV PRN (14:31)
[2019-08-01] MEDS ORDERED: ONDANSETRON 4 MG/2 ML VIAL IV PRN (14:31)
[2019-08-01] MEDS: INSULIN REGULAR 100 UNIT/ML SUBCUT SCH ×2 (17:13→21:23)
[2019-08-01] MEDS ORDERED: SIMVASTATIN 20 MG TABLET PO SCH (21:00)
[2019-08-01] MEDS: carvediloL 25 MG TABLET PO SCH (21:20)
[2019-08-02 04:43] LABS: Basophils % 0.6 % (0.0-0.8); Eosinophils # 0.2 10*3/uL (0.0-0.87); Eosinophils % 4.3 % (0.00-10.9); Hematocrit 33.6 VOL% (42.0-52.0); Hemoglobin 10.8 GM/DL (14.0-18.0); Immature Granulocytes % 0.2 %; Immature Granulocytes Absolute 0.01 #; Lymphocytes # 1.7 10*3/uL (1.4-4.0); Lymphocytes % 32.8 % (21.2-54.2); Mean Corpuscular HGB Conc 32.1 GM/DL (32-36); Mean Corpuscular Volume 85.3 FL (87-102); Mean Platelet Volume 11.6 FL (9.6-12.0); Monocytes % 8.8 % (1.7-12.7); Neutrophils % 53.3 % (38.7-73.9); Platelet Count 166 T/CUMM (130-400); Red Blood Count 3.94 MC/CUMM (3.8-5.5); Red Cell Distribution Width 13.3 % (9.3-17.3); White Blood Count 5.1 T/CUMM (4-12)
[2019-08-02 05:07] LABS: Calcium 9.1 MG/DL (8.5-10.1); Osmolality,Calculated 280.7 MOS/KG (273-304)
[2019-08-02] MEDS ORDERED: CYCLOBENZAPRINE 10 MG TABLET PO PRN (08:56)
[2019-08-02] MEDS: INSULIN REGULAR 100 UNIT/ML SUBCUT SCH ×2 (08:57→13:33)
[2019-08-02] MEDS: carvediloL 25 MG TABLET PO SCH (08:58)
[2019-08-02] MEDS ORDERED: FUROSEMIDE 40 MG TABLET PO SCH (09:00)
[2019-08-02] MEDS ORDERED: RIVAROXABAN 20 MG TABLET PO SCH (09:00)
[2019-08-02] MEDS ORDERED: ASPIRIN EC 81 MG TABLET PO SCH (09:00)
[2019-08-02] MEDS ORDERED: PANTOPRAZOLE 40 MG TABLET PO SCH (09:00)
[2019-08-02] MEDS ORDERED: DILTIAZEM CD 240 MG CAPSULE PO SCH (09:00)
[2019-08-02] MEDS ORDERED: SPIRONOLACTONE 25 MG TABLET PO SCH (09:00)
[2019-08-02] MEDS ORDERED: LIDOCAINE 5% PATCH TRANSDERM SCH (09:00)
[2019-08-02] MEDS ORDERED: lisinopriL 10 MG TABLET PO SCH (09:00)
[2019-08-02 12:51] VITALS: BP 140/71
== END 2019-08-02 15:27 | disposition home or self-care (01) ==
LOC: N.ED 08:41 → N.EDINP 08:41 → N.TELEN 15:29
PROVIDERS: ADMIT Internal Medicine; ATTEND Internal Medicine

== ENCOUNTER 2021-08-31 13:06 | Inpatient (IN) ==
[2021-08-31 14:18] LABS: Basophils % 0.5 % (0.0-0.8); Eosinophils # 0.2 10*3/uL (0.0-0.87); Eosinophils % 2.5 % (0.00-10.9); Hematocrit 32.8 VOL% (42.0-52.0); Hemoglobin 10.9 GM/DL (14.0-18.0); Immature Granulocytes % 0.5 %; Immature Granulocytes Absolute 0.03 #; Lymphocytes # 1.1 10*3/uL (1.4-4.0); Lymphocytes % 18.3 % (21.2-54.2); Mean Corpuscular HGB Conc 33.2 GM/DL (32-36); Mean Corpuscular Volume 85.6 FL (87-102); Mean Platelet Volume 11.3 FL (9.6-12.0); Neutrophils % 67.2 % (38.7-73.9); Platelet Count 167 T/CUMM (130-400); Red Blood Count 3.83 MC/CUMM (3.8-5.5); Red Cell Distribution Width 13.1 % (9.3-17.3); White Blood Count 6.1 T/CUMM (4-12)
[2021-08-31 14:45] LABS: Albumin 3.2 G/DL (3.4-5.0); Bilirubin,Total 0.4 MG/DL (0.20-1.00); Calcium 9.3 MG/DL (8.5-10.1); Hypochromia 1+; Osmolality,Calculated 286.7 MOS/KG (273-304); Platelet Estimate Adequate; Polychromasia Few; Potassium 4.6 MMOL/L (3.5-5.1); Total Protein 8.4 G/DL (6.4-8.2)
[2021-08-31 15:21] LABS: Sedimentation Rate-Westergren 107 MM/HR (0-15)
[2021-08-31] MEDS ORDERED: PIPERACILLIN/TAZOBACTAM 3,375 MG in SODIUM CHLORIDE 0.9% 100 ML IV STA ×2 (15:41→15:43)
[2021-08-31] MEDS ORDERED: LACTATED RINGERS 1,000 ML IV ONE (15:47)
[2021-08-31] MEDS ORDERED: GLUCAGON 1 MG VIAL IM PRN (16:03)
[2021-08-31] MEDS ORDERED: ONDANSETRON 4 MG/2 ML VIAL IV PRN (16:03)
[2021-08-31] MEDS ORDERED: DEXTROSE 10% 250 ML BAG IV PRN (16:08)
[2021-08-31] MEDS ORDERED: MORPHINE 4 MG/1 ML VIAL IV PRN (16:09)
[2021-08-31] MEDS ORDERED: VANCOMYCIN INJ 1,000 MG in SODIUM CHLORIDE 0.9% 250 ML IV SCH (16:30)
[2021-08-31] MEDS: INSULIN REGULAR 100 UNIT/ML SUBCUT SCH ×2 (17:00→22:52)
[2021-08-31] MEDS ORDERED: SCOPOLAMINE 1.5 MG PATCH TRANSDERM ONE (17:42)
[2021-08-31] MEDS: ENOXAPARIN 30 MG/0.3 ML SYRINGE SUBCUT SCH (17:48)
[2021-08-31] MEDS: LACTATED RINGERS 1,000 ML IV SCH (18:21)
[2021-08-31] MEDS ORDERED: LIDOCAINE 1%/EPI INJ 20 ML VIAL ONE (20:13)
[2021-08-31] MEDS ORDERED: BUPIVACAINE MPF 0.25% 30 ML VIAL ONE (20:13)
[2021-08-31] MEDS ORDERED: fentaNYL 100 MCG/2 ML VIAL ONE (20:58)
[2021-08-31] MEDS ORDERED: DEXMEDETOMIDINE 200 MCG/2 ML VIAL ONE (20:59)
[2021-08-31] MEDS ORDERED: carvediloL 25 MG TABLET PO SCH (21:00)
[2021-08-31] MEDS ORDERED: propofoL 200 MG/20 ML VIAL IV ONE (21:07)
[2021-08-31] MEDS ORDERED: LIDOCAINE 1% 50 ML VIAL ONE (21:08)
[2021-08-31] MEDS ORDERED: ETOMIDATE 40 MG/20 ML VIAL IV ONE (21:21)
[2021-08-31] MEDS: VANCOMYCIN INJ 1,500 MG in SODIUM CHLORIDE 0.9% 500 ML IV SCH (22:00)
[2021-08-31] MEDS: SIMVASTATIN 20 MG TABLET PO SCH (22:51)
[2021-09-01] MEDS: PIPERACILLIN/TAZOBACTAM 3,375 MG in SODIUM CHLORIDE 0.9% 100 ML IV SCH ×3 (01:50→17:28)
[2021-09-01 07:07] LABS: Basophils % 0.4 % (0.0-0.8); Eosinophils # 0.2 10*3/uL (0.0-0.87); Eosinophils % 3.8 % (0.00-10.9); Hematocrit 29.5 VOL% (42.0-52.0); Hemoglobin 9.8 GM/DL (14.0-18.0); Immature Granulocytes % 0.6 %; Immature Granulocytes Absolute 0.03 #; Lymphocytes # 1.3 10*3/uL (1.4-4.0); Lymphocytes % 27.1 % (21.2-54.2); Mean Corpuscular HGB Conc 33.2 GM/DL (32-36); Mean Corpuscular Volume 84.8 FL (87-102); Mean Platelet Volume 11.4 FL (9.6-12.0); Neutrophils % 55.1 % (38.7-73.9); Platelet Count 142 T/CUMM (130-400); Red Blood Count 3.48 MC/CUMM (3.8-5.5); White Blood Count 4.8 T/CUMM (4-12)
[2021-09-01 07:32] LABS: Calcium 8.5 MG/DL (8.5-10.1); Osmolality,Calculated 287.1 MOS/KG (273-304); Potassium 4.6 MMOL/L (3.5-5.1)
[2021-09-01 07:34] LABS: Anisocytosis Slight; Band Neutrophils 3 % (0-10); Eosinophils 4 % (0-10); Lymphocytes 25 % (20-55); Platelet Estimate Adequate; Segmented Neutrophils 57 % (50-85); Total Cells Counted 100
[2021-09-01] MEDS: INSULIN REGULAR 100 UNIT/ML SUBCUT SCH ×4 (08:50→22:08)
[2021-09-01] MEDS: PANTOPRAZOLE 40 MG TABLET PO SCH (08:52)
[2021-09-01] MEDS: carvediloL 25 MG TABLET PO SCH ×2 (08:52→17:28)
[2021-09-01] MEDS: DIGOXIN 0.125 MG TABLET PO SCH (08:52)
[2021-09-01] MEDS: sitaGLIPtin 25 MG TABLET PO SCH (08:52)
[2021-09-01] MEDS: DILTIAZEM CD 240 MG CAPSULE PO SCH (08:52)
[2021-09-01] MEDS: LACTATED RINGERS 1,000 ML IV SCH ×2 (08:53→22:10)
[2021-09-01] MEDS: ENOXAPARIN 30 MG/0.3 ML SYRINGE SUBCUT SCH (17:30)
[2021-09-01] MEDS: SIMVASTATIN 20 MG TABLET PO SCH (22:08)
[2021-09-01] MEDS: VANCOMYCIN INJ 1,500 MG in SODIUM CHLORIDE 0.9% 500 ML IV SCH (22:09)
[2021-09-02] MEDS: PIPERACILLIN/TAZOBACTAM 3,375 MG in SODIUM CHLORIDE 0.9% 100 ML IV SCH ×2 (01:36→09:10)
[2021-09-02] MEDS: INSULIN REGULAR 100 UNIT/ML SUBCUT SCH ×2 (07:39→11:57)
[2021-09-02] MEDS: DIGOXIN 0.125 MG TABLET PO SCH (09:10)
[2021-09-02] MEDS: sitaGLIPtin 25 MG TABLET PO SCH (09:10)
[2021-09-02] MEDS: carvediloL 25 MG TABLET PO SCH (09:10)
[2021-09-02] MEDS: DILTIAZEM CD 240 MG CAPSULE PO SCH (09:10)
[2021-09-02] MEDS: PANTOPRAZOLE 40 MG TABLET PO SCH (09:10)
[2021-09-02 09:46] LABS: Basophils % 0.8 % (0.0-0.8); Eosinophils # 0.2 10*3/uL (0.0-0.87); Eosinophils % 4.3 % (0.00-10.9); Hematocrit 30.2 VOL% (42.0-52.0); Immature Granulocytes % 0.8 %; Immature Granulocytes Absolute 0.03 #; Lymphocytes # 1.3 10*3/uL (1.4-4.0); Lymphocytes % 32.3 % (21.2-54.2); Mean Corpuscular HGB Conc 33.1 GM/DL (32-36); Mean Platelet Volume 11.2 FL (9.6-12.0); Neutrophils % 49.8 % (38.7-73.9); Platelet Count 160 T/CUMM (130-400); Red Blood Count 3.51 MC/CUMM (3.8-5.5); White Blood Count 3.9 T/CUMM (4-12)
[2021-09-02 10:13] LABS: Calcium 8.9 MG/DL (8.5-10.1); Osmolality,Calculated 280.1 MOS/KG (273-304); Potassium 5.5 MMOL/L (3.5-5.1)
[2021-09-02 10:19] LABS: Folate 10.75 NG/ML (5.38-24.0)
[2021-09-02 10:19] LABS: % Iron Saturation 30.5 % (18-50); Ferritin 170.4 ng/mL (26-388)
[2021-09-02 11:41] VITALS: BP 116/74
[2021-09-02] MEDS: LACTATED RINGERS 1,000 ML IV SCH (11:57)
== END 2021-09-02 14:47 | disposition home or self-care (01) | DRG 623 ==
LOC: N.EDINP 13:06 → N.ED 13:06 → SUATTDRO 16:03 → N.EDINP 18:55 → N.3E 18:58 → SUATTDRO 09-01 10:29
PROVIDERS: ADMIT Emergency Medicine; ATTEND Internal Medicine

== ENCOUNTER 2021-12-28 05:32 | Inpatient (IN) ==
[2021-12-28 06:22] LABS: Basophils % 0.3 % (0.0-0.8); Eosinophils # 0.1 10*3/uL (0.0-0.87); Eosinophils % 1.2 % (0.00-10.9); Hematocrit 29.7 VOL% (42.0-52.0); Hemoglobin 9.8 GM/DL (14.0-18.0); Immature Granulocytes % 0.9 %; Immature Granulocytes Absolute 0.08 #; Lymphocytes # 1.1 10*3/uL (1.4-4.0); Mean Corpuscular Volume 87.4 FL (87-102); Mean Platelet Volume 11.7 FL (9.6-12.0); Monocytes % 11.7 % (1.7-12.7); Neutrophils % 72.9 % (38.7-73.9); Platelet Count 143 T/CUMM (130-400); Red Cell Distribution Width 13.4 % (9.3-17.3); White Blood Count 8.7 T/CUMM (4-12)
[2021-12-28 06:28] LABS: INR 1.5; PT Patient Result 15.7 SECS (10.5-12.0); Partial Thromboplastin Time 47.7 SECS (23.7-32.9)
[2021-12-28 06:41] LABS: Albumin 3.1 G/DL (3.4-5.0); Bilirubin,Total 0.4 MG/DL (0.20-1.00); Calcium 9.1 MG/DL (8.5-10.1); Osmolality,Calculated 289.7 MOS/KG (273-304); Potassium 4.4 MMOL/L (3.5-5.1); Total Protein 7.8 G/DL (6.4-8.2)
[2021-12-28] MEDS ORDERED: LACTATED RINGERS 500 ML IV ONE (06:58)
[2021-12-28] MEDS ORDERED: PIPERACILLIN/TAZOBACTAM 3,375 MG in SODIUM CHLORIDE 0.9% 100 ML IV STA (06:59)
[2021-12-28] MEDS ORDERED: GLUCAGON 1 MG VIAL IM PRN (08:23)
[2021-12-28] MEDS ORDERED: LACTULOSE 20 GM/30 ML UDCUP PO PRN (08:23)
[2021-12-28] MEDS ORDERED: DOCUSATE SODIUM 100 MG CAPSULE PO PRN (08:23)
[2021-12-28] MEDS ORDERED: ONDANSETRON 4 MG/2 ML VIAL IV PRN (08:23)
[2021-12-28] MEDS ORDERED: ALUMINUM/MAGNES/SIMETH MAX STR 30 ML UDCUP PO PRN (08:23)
[2021-12-28] MEDS ORDERED: VANCOMYCIN INJ 1,000 MG in SODIUM CHLORIDE 0.9% 250 ML IV SCH (08:30)
[2021-12-28] MEDS ORDERED: DEXTROSE 10% 250 ML BAG IV PRN (08:38)
[2021-12-28 08:40] LABS: Bacteria,Urine Occasional /HPF (Few); Hyaline Casts,Urine 1 /LPF (0-3); Mucus,Urine Occasional /LPF (Occasional); RBC,Urine 1 /HPF (0-4); Squamous Epithelial Cell,Urine Occasional /HPF (0-10)
[2021-12-28 08:41] LABS: Bilirubin,Urine Negative (Negative); Blood, Urine Trace mg/dL (Negative); Glucose,Urine (UA) 500 mg/dL (Negative); Ketones,Urine Negative (Negative); Nitrite,Urine Negative (Negative); Protein,Urine Negative (Negative); Urine Appearance Clear (Clear); Urine Color Light Yellow (Yellow); Urine Urobilinogen 0.2 eU/dL (<2.0); Urine pH 5.5 (4.5-8.0)
[2021-12-28] MEDS ORDERED: VANCOMYCIN INJ 1,750 MG in SODIUM CHLORIDE 0.9% 500 ML IV PRN (09:28)
[2021-12-28] MEDS ORDERED: MAGNESIUM SULF RIDER 4 GM/100 ML PREMIX IV PRN (09:55)
[2021-12-28] MEDS ORDERED: MAGNESIUM SULF RIDER 2 GM/50 ML PREMIX IV PRN (09:55)
[2021-12-28] MEDS ORDERED: VANCOMYCIN INJ 1,750 MG in SODIUM CHLORIDE 0.9% 500 ML IV ONE (11:00)
[2021-12-28] MEDS: SODIUM CHLORIDE 0.9% 1,000 ML IV SCH (11:58)
[2021-12-28] MEDS: DILTIAZEM CD 240 MG CAPSULE PO SCH (11:58)
[2021-12-28] MEDS: PANTOPRAZOLE 40 MG TABLET PO SCH (12:02)
[2021-12-28] MEDS: carvediloL 25 MG TABLET PO SCH ×2 (12:02→17:40)
[2021-12-28] MEDS: INSULIN GLARGINE 100 UNIT/ML SUBCUT SCH (14:05)
[2021-12-28] MEDS: INSULIN LISPRO 100 UNIT/ML SUBCUT SCH ×3 (14:19→21:30)
[2021-12-28] MEDS: ACETAMINOPHEN 325 MG TABLET PO PRN (14:27)
[2021-12-28] MEDS: PIPERACILLIN/TAZOBACTAM 3,375 MG in SODIUM CHLORIDE 0.9% 100 ML IV SCH (18:53)
[2021-12-28] MEDS ORDERED: PRAVASTATIN 40 MG TABLET PO SCH (21:00)
[2021-12-29 05:09] LABS: Basophils % 0.2 % (0.0-0.8); Eosinophils # 0.1 10*3/uL (0.0-0.87); Eosinophils % 1.6 % (0.00-10.9); Hematocrit 29.9 VOL% (42.0-52.0); Hemoglobin 9.8 GM/DL (14.0-18.0); Immature Granulocytes % 0.5 %; Immature Granulocytes Absolute 0.04 #; Lymphocytes # 0.9 10*3/uL (1.4-4.0); Lymphocytes % 11.1 % (21.2-54.2); Mean Corpuscular HGB Conc 32.8 GM/DL (32-36); Mean Corpuscular Volume 87.7 FL (87-102); Mean Platelet Volume 11.4 FL (9.6-12.0); Monocytes % 11.6 % (1.7-12.7); Platelet Count 141 T/CUMM (130-400); Red Blood Count 3.41 MC/CUMM (3.8-5.5); Red Cell Distribution Width 13.2 % (9.3-17.3); White Blood Count 8.3 T/CUMM (4-12)
[2021-12-29] MEDS: PIPERACILLIN/TAZOBACTAM 3,375 MG in SODIUM CHLORIDE 0.9% 100 ML IV SCH ×2 (05:10→17:24)
[2021-12-29 05:30] LABS: Albumin 2.6 G/DL (3.4-5.0); Bilirubin,Total 0.5 MG/DL (0.20-1.00); Calcium 8.8 MG/DL (8.5-10.1); Potassium 4.7 MMOL/L (3.5-5.1); Risk Ratio 4.25; Total Protein 7.5 G/DL (6.4-8.2); VLDL Cholesterol 21.2 MG/DL
[2021-12-29] MEDS ORDERED: CLINDAMYCIN INJ 900 MG/50 ML PREMIX IV ONE (07:07)
[2021-12-29] MEDS ORDERED: MAGNESIUM SULF RIDER 2 GM/50 ML PREMIX IV ONE (08:47)
[2021-12-29] MEDS: carvediloL 25 MG TABLET PO SCH ×2 (09:06→17:24)
[2021-12-29] MEDS: ASPIRIN EC 81 MG TABLET PO SCH (09:06)
[2021-12-29] MEDS: PANTOPRAZOLE 40 MG TABLET PO SCH (09:07)
[2021-12-29] MEDS: DILTIAZEM CD 240 MG CAPSULE PO SCH (09:07)
[2021-12-29] MEDS: INSULIN LISPRO 100 UNIT/ML SUBCUT SCH ×4 (09:14→21:32)
[2021-12-29] MEDS: INSULIN GLARGINE 100 UNIT/ML SUBCUT SCH (09:14)
[2021-12-29] MEDS ORDERED: BUPIVACAINE MPF 0.25% 10 ML VIAL ONE (11:49)
[2021-12-29] MEDS ORDERED: LACTATED RINGERS 1,000 ML IV SCH (12:00)
[2021-12-29] MEDS ORDERED: propofoL 200 MG/20 ML VIAL IV ONE (12:33)
[2021-12-29] MEDS ORDERED: MIDAZOLAM 2 MG/2 ML VIAL ONE (12:33)
[2021-12-29] MEDS ORDERED: SEVOFLURANE 1 UNIT/15 MINUTE INH ONE ×2 (12:33→13:02)
[2021-12-29] MEDS ORDERED: LIDOCAINE 2% 5 ML VIAL ONE (12:33)
[2021-12-29] MEDS ORDERED: HYDROmorphone 1 MG/1 ML SYRINGE ONE (12:43)
[2021-12-29] MEDS ORDERED: ONDANSETRON 4 MG/2 ML VIAL ONE (12:45)
[2021-12-29] MEDS ORDERED: PHENYLEPHRINE 1 MG/10 ML SYRINGE IV ONE (12:54)
[2021-12-29] MEDS: VANCOMYCIN INJ 1,750 MG in SODIUM CHLORIDE 0.9% 500 ML IV SCH (15:40)
[2021-12-29] MEDS: DIGOXIN 0.125 MG TABLET PO SCH (15:40)
[2021-12-29] MEDS: SODIUM CHLORIDE 0.9% 1,000 ML IV SCH (15:41)
[2021-12-29] MEDS: SIMVASTATIN 20 MG TABLET PO SCH (21:24)
[2021-12-30] MEDS: ACETAMINOPHEN 325 MG TABLET PO PRN ×2 (00:02→17:37)
[2021-12-30] MEDS: PIPERACILLIN/TAZOBACTAM 3,375 MG in SODIUM CHLORIDE 0.9% 100 ML IV SCH ×3 (01:00→17:20)
[2021-12-30 03:58] LABS: Basophils % 0.2 % (0.0-0.8); Eosinophils # 0.2 10*3/uL (0.0-0.87); Eosinophils % 2.6 % (0.00-10.9); Hematocrit 27.4 VOL% (42.0-52.0); Hemoglobin 8.7 GM/DL (14.0-18.0); Immature Granulocytes % 0.8 %; Immature Granulocytes Absolute 0.07 #; Lymphocytes # 1.2 10*3/uL (1.4-4.0); Lymphocytes % 13.7 % (21.2-54.2); Mean Corpuscular HGB Conc 31.8 GM/DL (32-36); Mean Corpuscular Volume 89.5 FL (87-102); Monocytes # 0.9 10*3/uL (0.11-0.8); Monocytes % 10.9 % (1.7-12.7); Neutrophils % 71.8 % (38.7-73.9); Platelet Count 151 T/CUMM (130-400); Red Blood Count 3.06 MC/CUMM (3.8-5.5); Red Cell Distribution Width 13.3 % (9.3-17.3); White Blood Count 8.5 T/CUMM (4-12)
[2021-12-30 04:15] LABS: Calcium 8.6 MG/DL (8.5-10.1); Osmolality,Calculated 277.8 MOS/KG (273-304); Potassium 4.8 MMOL/L (3.5-5.1)
[2021-12-30] MEDS: ASPIRIN EC 81 MG TABLET PO SCH (08:22)
[2021-12-30] MEDS: DILTIAZEM CD 240 MG CAPSULE PO SCH (08:22)
[2021-12-30] MEDS: carvediloL 25 MG TABLET PO SCH ×2 (08:22→17:21)
[2021-12-30] MEDS: PANTOPRAZOLE 40 MG TABLET PO SCH (08:22)
[2021-12-30] MEDS: INSULIN GLARGINE 100 UNIT/ML SUBCUT SCH (08:25)
[2021-12-30] MEDS: INSULIN LISPRO 100 UNIT/ML SUBCUT SCH ×4 (08:26→21:37)
[2021-12-30] MEDS ORDERED: DIAZEPAM 5 MG TABLET PO ONE (09:44)
[2021-12-30] MEDS: SODIUM CHLORIDE 0.9% 1,000 ML IV SCH (13:14)
[2021-12-30] MEDS: DIGOXIN 0.125 MG TABLET PO SCH (13:27)
[2021-12-30] MEDS: ENOXAPARIN 60 MG/0.6 ML SYRINGE SUBCUT SCH (13:30)
[2021-12-30] MEDS: VANCOMYCIN INJ 1,750 MG in SODIUM CHLORIDE 0.9% 500 ML IV SCH (15:21)
[2021-12-30] MEDS: SIMVASTATIN 20 MG TABLET PO SCH (21:37)
[2021-12-31] MEDS: PIPERACILLIN/TAZOBACTAM 3,375 MG in SODIUM CHLORIDE 0.9% 100 ML IV SCH ×3 (00:26→18:49)
[2021-12-31] MEDS: ENOXAPARIN 60 MG/0.6 ML SYRINGE SUBCUT SCH ×2 (02:59→16:03)
[2021-12-31] MEDS: SODIUM CHLORIDE 0.9% 1,000 ML IV SCH (04:16)
[2021-12-31 06:03] LABS: Basophils % 0.3 % (0.0-0.8); Eosinophils # 0.3 10*3/uL (0.0-0.87); Eosinophils % 3.5 % (0.00-10.9); Hematocrit 29.8 VOL% (42.0-52.0); Hemoglobin 9.7 GM/DL (14.0-18.0); Immature Granulocytes % 1.4 %; Lymphocytes # 1.3 10*3/uL (1.4-4.0); Lymphocytes % 17.6 % (21.2-54.2); Mean Corpuscular HGB Conc 32.6 GM/DL (32-36); Mean Corpuscular Volume 88.2 FL (87-102); Mean Platelet Volume 11.3 FL (9.6-12.0); Monocytes # 0.7 10*3/uL (0.11-0.8); Monocytes % 10.3 % (1.7-12.7); Neutrophils % 66.9 % (38.7-73.9); Platelet Count 175 T/CUMM (130-400); Red Blood Count 3.38 MC/CUMM (3.8-5.5); Red Cell Distribution Width 13.1 % (9.3-17.3); White Blood Count 7.2 T/CUMM (4-12)
[2021-12-31 06:19] LABS: Calcium 8.8 MG/DL (8.5-10.1); Osmolality,Calculated 278.8 MOS/KG (273-304); Potassium 4.4 MMOL/L (3.5-5.1)
[2021-12-31] MEDS: PANTOPRAZOLE 40 MG TABLET PO SCH (10:31)
[2021-12-31] MEDS: carvediloL 25 MG TABLET PO SCH ×2 (10:31→18:49)
[2021-12-31] MEDS: ASPIRIN EC 81 MG TABLET PO SCH (10:31)
[2021-12-31] MEDS: INSULIN LISPRO 100 UNIT/ML SUBCUT SCH ×4 (10:31→23:31)
[2021-12-31] MEDS: DILTIAZEM CD 240 MG CAPSULE PO SCH (10:31)
[2021-12-31] MEDS: INSULIN GLARGINE 100 UNIT/ML SUBCUT SCH (10:32)
[2021-12-31] MEDS: VANCOMYCIN INJ 1,750 MG in SODIUM CHLORIDE 0.9% 500 ML IV SCH (16:03)
[2021-12-31] MEDS: DIGOXIN 0.125 MG TABLET PO SCH (16:03)
[2021-12-31] MEDS: SIMVASTATIN 20 MG TABLET PO SCH (23:32)
[2022-01-01] MEDS: PIPERACILLIN/TAZOBACTAM 3,375 MG in SODIUM CHLORIDE 0.9% 100 ML IV SCH (01:32)
[2022-01-01] MEDS: ENOXAPARIN 60 MG/0.6 ML SYRINGE SUBCUT SCH (01:32)
[2022-01-01 06:30] LABS: Basophils % 0.5 % (0.0-0.8); Eosinophils # 0.3 10*3/uL (0.0-0.87); Hematocrit 29.3 VOL% (42.0-52.0); Hemoglobin 9.6 GM/DL (14.0-18.0); Immature Granulocytes % 1.1 %; Immature Granulocytes Absolute 0.07 #; Lymphocytes # 1.4 10*3/uL (1.4-4.0); Lymphocytes % 22.9 % (21.2-54.2); Mean Corpuscular HGB Conc 32.8 GM/DL (32-36); Mean Platelet Volume 11.3 FL (9.6-12.0); Monocytes # 0.7 10*3/uL (0.11-0.8); Monocytes % 10.7 % (1.7-12.7); Neutrophils % 60.8 % (38.7-73.9); Platelet Count 174 T/CUMM (130-400); Red Blood Count 3.33 MC/CUMM (3.8-5.5); White Blood Count 6.3 T/CUMM (4-12)
[2022-01-01 06:47] LABS: Osmolality,Calculated 279.4 MOS/KG (273-304); Potassium 3.9 MMOL/L (3.5-5.1)
[2022-01-01] MEDS ORDERED: LEVOFLOXACIN 750 MG TABLET PO SCH (07:00)
[2022-01-01] MEDS ORDERED: MAGNESIUM SULF RIDER 2 GM/50 ML PREMIX IV ONE (07:52)
[2022-01-01] MEDS: carvediloL 25 MG TABLET PO SCH (10:10)
[2022-01-01] MEDS: INSULIN GLARGINE 100 UNIT/ML SUBCUT SCH (10:11)
[2022-01-01] MEDS: PANTOPRAZOLE 40 MG TABLET PO SCH (10:11)
[2022-01-01] MEDS: ASPIRIN EC 81 MG TABLET PO SCH (10:11)
[2022-01-01] MEDS: INSULIN LISPRO 100 UNIT/ML SUBCUT SCH ×2 (10:11→14:18)
[2022-01-01] MEDS: DILTIAZEM CD 240 MG CAPSULE PO SCH (10:11)
[2022-01-01 12:59] VITALS: BP 155/72
== END 2022-01-01 14:10 | disposition home health service (06) | DRG 264 ==
LOC: N.ED 05:32 → N.EDINP 08:23 → SUATTDRO 08:23 → N.TELEN 08:52
PROVIDERS: ADMIT Internal Medicine; ATTEND Internal Medicine